=== PATIENT | female | born 1990 | race Caucasian/White ===

== ENCOUNTER 2021-02-28 16:43 | Emergency (ER) | payer OTHER, SELFPAY ==
[2021-02-28 16:50] VITALS: BP 122/72; PULSE 101; RESP 12; TEMP 36.9; O2SAT 100
--- NOTE | 2021-02-28 17:01 | ED.URI ---
HPI - URI/Sore Throat General Chief Complaint: Upper Respiratory Infection Stated Complaint: COUGH/SOB Time Seen by Provider: 02/28/21 17:02 Source: patient, RN notes reviewed and old records reviewed Mode of arrival: ambulatory Limitations: no limitations History of Present Illness HPI Narrative: 30-year-old female who presents to [facility] with complaints of one week duration of cough which wakes her at night with some sinus drainage. Patient denies any known fevers, chills,or sweats,denies any ear pain, sore throat or any acute shortness of breath. Patient has had COVID vaccination. Patient is able to speak in full sentences with no tachypnea or accessory muscle use noted, respirations are even and nonlabored with SAO2 100% on room air. Patient has not taken any OTC medications for her symptoms. MD elicited complaint: cough Related Data Home Medications Medication Instructions Recorded Confirmed calcium carbonate-vitamin D3 1 tablet PO DAILY 05/21/19 02/28/21 [Calcium with Vitamin D] cyanocobalamin (vitamin B-12) 1,000 mcg PO DAILY 05/21/19 02/28/21 [Vitamin B-12] acetaminophen 500 mg capsule 1,000 mg PO TID PRN cap 06/26/19 02/28/21 escitalopram oxalate 5 mg PO DAILY 02/28/21 02/28/21 trazodone 50 mg PO DAILY 02/28/21 02/28/21 venlafaxine 150 mg PO DAILY 02/28/21 02/28/21 Allergies Allergy/AdvReac Type Severity Reaction Status Date / Time Sulfa (Sulfonamide Allergy Intermediate Hives / Verified 02/28/21 16:50 Antibiotics) Red Face Penicillins Allergy Unknown rash Verified 02/28/21 16:50 Review of Systems Review of Systems: CONSTITUTIONAL: Denies fever, chills, or sweats. EYES: Denies visual changes, redness, or discharge. ENT: Positive rhinorrhea, congestion,no sore throat, or otalgia. CARDIOVASCULAR: Denies chest pain, palpitations, or edema. RESPIRATORY: Positive cough or dyspnea. GASTROINTESTINAL: Denies abdominal pain, nausea, vomiting, or diarrhea. GENITOURINARY: Denies dysuria or hematuria. SKIN: Denies rash or itching. MUSCULOSKELETAL: Denies back pain, joint pain, or myalgia. NEUROLOGIC: Denies headache, numbness, or weakness. PSYCHIATRIC:Positive history of anxiety or depression. All systems reviewed & are unremarkable except as noted in HPI and below PMFSH Past Medical History Medical History (Updated 02/28/21 @ 17:22 by Jammie Orellana NP) Anemia Anxiety and depression Insomnia Surgical History Surgical History (Updated 02/28/21 @ 17:19 by Jammie Orellana NP) No history of previous surgery Family History Family History Father Family history of elevated blood lipids Mother Family history of malignant neoplasm of breast in first degree relative Other Depression Social History Social History (Updated 02/28/21 @ 17:19 by Jammie Orellana NP) Smoking end date: 07/18/09 Alcohol intake: current Alcohol use details: social Substance use type: does not use Living arrangements: with family Gender identity (if verbalized by the patient): Female Comments At time of signature, agree with nursing past medical, surgical, social and family history. There is no relevant family history pertinent to the presenting complaint Exam Narrative: GENERAL: Well-appearing, well-nourished, and in no acute distress. HEAD: Normocephalic, atraumatic. EYES: PERRLA and EOMI. ENT: Nares red with swollen turbinates, clear nasal rhinorrhea no epistaxis. Mucous membranes moist.TM's normal with good light reflex, throat mild redness with no lesions or exudates, no tonsil enlargement, post nasal drainage present NECK: Supple.no lymphadenopathy CHEST: Clear to auscultation. No respiratory distress.SAO2 100% on room air, some cough noted with no dyspnea, no tachypnea or any accessory muscle use noted. HEART: Regular rate and rhythm. No murmur heard. Normal peripheral pulses. ABDOMEN: Soft, nontender, nondistended, normal active warren
== END 2021-02-28 17:34 | disposition home or self-care (01) ==
PROVIDERS: Emergency Provider Registered Nurse; PCP Family Medicine
DX: J06.9 Acute upper respiratory infection, unspecified (principal); F41.9 Anxiety disorder, unspecified; F32.9 Major depressive disorder, single episode, unspecified; G47.00 Insomnia, unspecified
CPT/HCPCS: 99213; G0463

== ENCOUNTER 2021-10-30 16:04 | Emergency (ER) | payer OTHER, SELFPAY ==
--- NOTE | ~2021-10-30 | US_ITS ---
US pelvic complete w TV DATE: 10/30/2021 17:28 INDICATION: Abnormal uterine bleeding TECHNIQUE: Real-time imaging via transabdominal and transvaginal approaches COMPARISON: None FINDINGS: The uterus measures 7.5 cm height, 4.9 cm transverse and 4.1 cm AP dimension. The central e ndometrial echo complex measures 3.9 mm AP dimension. There is an IUD in expected position within the endometrial cavity. Right ovary measures 3.9 x 4.3 x 4.5 cm, with vascular flow. There is a 3.5 x 2.8 cm complex lesion o f the right ovary., Without internal vascularity. This may be complicated or hemorrhagic cyst. The left ovary measures 3.4 x 2.5 x 2.1 cm, with vascular flow. There is mild free fluid accumulation posterior to the uterus. IMPRESSION: IUD within uterus 3.5 x 2.8 cm complex mass of right ovary without internal vascularity, possibly a complicated or hemo rrhagic cyst; consider short-term follow-up pelvic ultrasound examination Mild free fluid accumulation in the cul-de-sac and retrouterine area Reviewed, dictated and finalized at [facility]. Reviewed, dictated and finalized at [facility] IMPRESSION: IUD within uterus 3.5 x 2.8 cm complex mass of right ovary without internal vascularity, possibly a complicated or hemorrhagic cyst; consider short-term follow-up pelvic ultras ound examination Mild free fluid accumulation in the cul-de-sac and retrouterine area
[2021-10-30 16:18] VITALS: BP 118/74; PULSE 74; RESP 16; TEMP 36.3; O2SAT 97
[2021-10-30 16:54] LABS: Basophils Percent Auto 0.6 % (0.2-1.2); Eosinophils Absolute Auto 0.2 K/mm3 (0-0.3); Eosinophils Percent Auto 2.4 % (0-4.4); Hemoglobin 12.1 g/dL (12.0-15.0); Immature Granulocyte Absolute 0.01 K/mm3 (0.00-0.031); Immature Granulocyte Percent A 0.1 % (0-0.5); Lymphocytes Absolute Auto 1.77 K/mm3 (0.9-3.2); Lymphocytes Percent Auto 25.2 % (18.3-44.2); Mean Corpuscular HGB Conc 31.8 g/dl (32-36); Mean Corpuscular Hemoglobin 29.2 pg (26-34); Mean Corpuscular Volume 91.8 fl (80-100); Mean Platelet Volume 10.1 fl (7.4-10.4); Monocytes Absolute Auto 0.3 K/mm3 (0.1-0.6); Monocytes Percent Auto 4.8 % (2.6-8.5); Neutrophils Absolute Auto 4.7 K/mm3 (1.3-6.7); Neutrophils Percent Auto 66.9 % (45.5-73.1); Platelet Count Result 239 k/mm3 (150-375); Red Blood Count 4.14 M/mm3 (4.2-5.4); Red Cell Distribution Width 15.6 % (11.5-14.5)
[2021-10-30 16:55] LABS: Add Urine Microscopic? YES; Appearance Urine Clear (Clear); Bilirubin Urine Negative (Negative); Blood Urine 2+ (Negative); Color Urine Yellow (Yellow); Glucose Urine UA Negative (Negative); Ketones Urine Negative (Negative); Leukocyte Esterase Ur Negative LEU/UL (Negative); Nitrate Urine Negative (Negative); Protein Urine Negative (Negative); Urobilinogen Urine 0.2 mg/dL (<2.0); pH Urine 7.5 (5.0-9.0)
[2021-10-30 16:58] LABS: Bacteria Urine Trace /hpf; Squamous Epithelial Cell Urine Occasional /hpf (Few); WBC Urine 0-3 /hpf
[2021-10-30 17:04] LABS: INR 1.2; Partial Thromboplastin Time 35.7 SECONDS (22.3-36.8); Prothrombin Time 14.4 Seconds (11.1-14.7)
--- NOTE | 2021-10-30 17:25 | ED.FEMALEGU ---
HPI - Female Genitourinary General Chief complaint: [employer] Stated complaint: vaginal bleeding Time Seen by Provider: 10/30/21 16:14 Source: patient Mode of arrival: ambulatory Limitations: no limitations History of Present Illness HPI Narrative: This is a 30 year old female that presents to the ER for abnormal uterine bleeding. Reports she just had her menstrual cycle two weeks ago. She started again having some bleeding today. She has also had some pelvic cramping. She has an IUD. She usually has regular monthly periods. Does not have a aluminum sheet cutter currently. Denies fever, dysuria, or hematuria. Related Data Home Medications Medication Instructions Recorded Confirmed calcium carbonate-vitamin D3 1 tablet PO DAILY 05/21/19 02/28/21 [Calcium with Vitamin D] cyanocobalamin (vitamin B-12) 1,000 mcg PO DAILY 05/21/19 02/28/21 [Vitamin B-12] acetaminophen 500 mg capsule 1,000 mg PO TID PRN cap 06/26/19 02/28/21 escitalopram oxalate 5 mg PO DAILY 02/28/21 02/28/21 trazodone 50 mg PO DAILY 02/28/21 02/28/21 venlafaxine 150 mg PO DAILY 02/28/21 02/28/21 Allergies Allergy/AdvReac Type Severity Reaction Status Date / Time Sulfa (Sulfonamide Allergy Intermediate Hives / Verified 02/28/21 16:50 Antibiotics) Red Face Penicillins Allergy Unknown rash Verified 02/28/21 16:50 Review of Systems Review of Systems: CONSTITUTIONAL: Denies fever GASTROINTESTINAL: Reports pelvic cramping GENITOURINARY: Denies dysuria or hematuria. All systems reviewed & are unremarkable except as noted in HPI and below PMFSH Past Medical History Medical History (Updated 10/30/21 @ 18:17 by Roseanne Smith PA-C) Anemia Anxiety and depression Insomnia Surgical History Surgical History (Updated 02/28/21 @ 17:19 by Jammie Orellana NP) No history of previous surgery Family History Family History Father Family history of elevated blood lipids Mother Family history of malignant neoplasm of breast in first degree relative Other Depression Social History Social History (Updated 02/28/21 @ 17:19 by Jammie L. Reyna, HEEL [employer]ER) Smoking end date: 07/18/09 Alcohol intake: current Alcohol use details: social Substance use type: does not use Gender identity (if verbalized by the patient): Female Exam Narrative: GENERAL: Well-appearing, well-nourished, and in no acute distress. HEAD: Normocephalic, atraumatic. EYES: EOMI. CHEST: Clear to auscultation. No respiratory distress. No wheezes rales or rhonchi HEART: Regular rate and rhythm. No murmur heard. Normal peripheral pulses. ABDOMEN: Soft, nontender, nondistended, normal active bowel sounds. EXTREMITIES: Normal range of motion. No edema. SKIN: Warm, dry, no rash. NEURO: No focal deficits. Alert and oriented x3. PSYCH: Normal mood and affect PELVIC: Normal external genitalia. Normal appearing cervix. Small amount of dark red blood in the vaginal vault. IUD strings are visualized Course Vital Signs Vital signs: Vital Signs Temperature 97.3 F L 10/30/21 16:18 Pulse Rate 74 10/30/21 16:18 Respiratory Rate 16 10/30/21 16:18 Blood Pressure 118/74 10/30/21 16:18 Pulse Oximetry 97 10/30/21 16:18 Temperature 97.3 F L 10/30/21 16:18 Pulse Rate 74 10/30/21 16:18 Respiratory Rate 16 10/30/21 16:18 Blood Pressure 118/74 10/30/21 16:18 Pulse Oximetry 97 10/30/21 16:18 MDM - Female Genitourinary MDM Narrative Medical decision making narrative: Patient presents to the emergency department for abnormal uterine bleeding. She is afebrile and nontoxic-appearing. Her vitals are stable. CBC and metabolic panel without concerning findings. Bedside test is negative. UA without evidence of infection. Trichomonas is negative. Chlamydia, gonorrhea, general genital culture were sent. Pelvic ultrasound shows IUD within the uterus. Shows a 3.5 x 2.8 cm complex mass of the right ovary
[2021-10-30 17:39] LABS: Alanine Aminotransferase 11 U/L (4-35); Albumin Level 5.1 g/dL (3.5-5.1); Alkaline Phosphatase 71 U/L (38-126); Anion Gap 10 mmol/L (8-16); Aspartate Amino Transferase 27 U/L (14-36); Bilirubin,Total 0.4 mg/dL (0.2-1.3); Blood Urea Nitrogen 9 mg/dL (7-17); Calcium 9.8 mg/dL (8.4-10.2); Carbon Dioxide 26 mmol/L (22-30); Chloride 102 mmol/L (98-107); Estimated Glomerular Filt Rate > 60; Glucose 94 mg/dL (65-110); Potassium 3.8 mmol/L (3.4-5.0); Sodium 138 mmol/L (137-145)
[2021-10-30 18:22] VITALS: BP 114/70; PULSE 78; RESP 16; O2SAT 98
== END 2021-10-30 18:23 | disposition home or self-care (01) ==
PROVIDERS: Physician Assistant; Emergency Provider Emergency Medicine
DX: N93.9 Abnormal uterine and vaginal bleeding, unspecified (principal); N83.201 Unspecified ovarian cyst, right side; F41.9 Anxiety disorder, unspecified; F32.A Depression, unspecified; Z86.2 Personal history of diseases of the blood and blood-forming organs and certain disorders involving the immune mechanism; Z87.891 Personal history of nicotine dependence
CPT/HCPCS: 36415; 76830; 76856; 80053; 81001; 81025; 85025; 85610; 85730; 87070; 87491; 87591; 87808; 99284

== ENCOUNTER 2024-12-22 13:12 | Emergency (ER) | payer BC, SELFPAY ==
--- OUTSIDE RECORDS SUMMARY | 2024-12-22 13:14 | XMS_ITS | Referral Summary ---
Author Organization [facility] Address [address] [place] [phone] Care Team Providers Care Water Regulator And Valve Repairer Name Role Phone Maggy Wright NP Primary Care Provider [phone] Encounters Date Type Department Care Team Description 12/22/[address] [facility] Family Medicine [address] [facility] [address] [place] [phone] Maggy Wright NP 12/03/2024 1:15 PM CDT Office Visit [facility] [address] [phone] Zina Lock MD Encounter for supervision of other normal in third trimester (Primary Dx); 34 weeks gestation of 11/21/2024 1:15 PM CDT Office Visit [facility] [address] [place] [phone] Zina Lock MD care, subsequent in third trimester (Primary Dx); 32 weeks gestation of 11/05/2024 1:00 PM CDT [facility] Visit [facility] [address] [place] [phone] Sapna Forbes NP care, subsequent in third trimester (Primary Dx); 29 weeks gestation of 10/22/2024 1:55 PM CDT - 10/22/2024 11:59 PM CDT Hospital Encounter [facility] [address] [place] [address] Discharge Disposition: Discharge to home or self care 10/22/2024 1:30 PM CDT Office Visit [facility] [address] [place] [phone] Zina Lock MD Encounter for supervision of other normal in third trimester (Primary Dx); 28 weeks gestation of ; Screening for diabetes mellitus 09/24/2024 1:00 PM CDT [facility] [address] [place] [phone] Zina Lock MD Encounter for supervision of other normal , second trimester (Primary Dx); 24 weeks gestation of from Last 3 Months Allergies Active Allergy Reactions Criticality Noted Date Comments Penicillins Hives,Other (See comments) Medium Reaction: HIVES, Reaction: Unknown, , Sulfa (Sulfonamide Antibiotics) Hives,Other (See comments) Medium Reaction: HIVES, Reaction: Unknown, , Medications escitalopram (LEXAPRO) 20 mg tablet Take 1 tablet (20 mg total) by mouth daily for 30 days 08/03/2023 Active vit [id number] a 27mg iron- 800 mcg-250 mg capsule Take by mouth Active Active Problems Problem Noted Date Diagnosed Date Encounter for ultrasound to check growth 0 12/13/2024 Mixed hyperlipidemia 01/12/2024 Overview (01/12/2024): History of elevated cholesterol. Have lab work completed Obesity (BMI 30-39.9) 12/08/2023 Assessment & Plan (01/11/2024 1:06 PM CDT): Discussed the patient's BMI. The BMI is above average. BMI management plan is completed. BMI Follow-up includes: nutrition counseling, exercise counseling and education provided. Assessment & Plan (12/08/2023 1:21 PM CDT): Discussed the patients BMI: The BMI is above average BMI management is complete. BMI follow-up includes: Nutrition Counseling and education provided Other insomnia 08/11/2021 Assessment & Plan (03/07/2024 11:01 AM CDT): 1. Chronic, poorly controlled 2. Trazodone is helping with her fall and stay asleep as well as have good energy during the day 3. She however she has a hard time waking up 4. She will get a timed mister to spray cold water in her face and will continue trazodone though she will try taking 75 mg Assessment & Plan (01/03/2024 4:20 PM CDT): 1. Chronic, improving but still poorly controlled with respected next day somnolence 2. Will continue the trazodone and recommended that she an hour to an hour and a half before desired wake-up time to take the phentermine and go back to bed Assessment & Plan (12/07/2023 4:42 PM CDT): 1. Chronic, poorly controlled 2. This is having a severe negative impact on her life 3. Recommended we do combination therapy of trazodone and Wellbutrin. Discussed possible worsening anxiety with wellbutrin and she understands to report any side effects. Assessment & Plan (11/04/2023 8:03 AM CDT): 1. Chronic, poorly controlled 2. This is having a severe negative impact on her life 3. Reviewed her previous sleep study which showed no sleep apnea, but constant spontaneous arousals 4. Recommended we do combination therapy of trazodone and Wellbutrin 5. However patient states that she is trying to get 6. Will prescribed doxylamine instead Assessment & Plan (08/11/2021 3:47 PM HEALTH AND SAFETY INSTRUCTOR): -will refer to Sleep Medicine for further eval pending normal labs. -patient to sleep medicine that she years ago but did not complete workup. -chronic problem, patient has difficulty getting Ki quality sleep. Chronic fatigue most the day. Consumes a vegan diet 08/11/2021 Assessment & Plan (08/11/2021 3:47 PM HEALTH AND SAFETY INSTRUCTOR): -will check B12 and folate Family history of breast cancer in mother 2021 Assessment & Plan (08/11/2021 3:47 PM HEALTH AND SAFETY INSTRUCTOR): -family history of breast cancer mother at age mid 40s -referral to high risk breast Cancer Clinic Anxiety 02/03/2012 Assessment & Plan (08/11/2021 3:49 PM HEALTH AND SAFETY INSTRUCTOR): -anxiety/depression/ADHD -follows up with Psychiatry. Acquired deviated nasal septum 02/03/2012 Chronic rhinitis 01/17/2012 Estimated Date of Delivery Comme nts Yes 01/14/2025 Based on last me nstrual period of 04/09/2024 Resolved Problems Problem Noted Date Diagnosed Date Resolved Date Encounter for anatomic survey 08/23/2024 10/22/2024 Encounter for scre ening for cervical length 08/23/2024 10/22/2024 Body aches 07/17/2024 10/22/2024 Overview (07/17/2024): COVID and flu were negative. Tylenol as needed for pain Sore throat 07/17/2024 10/22/2024 Overview (07/17/2024): Strep is negative. Take Tylenol as needed for pain. Confirm cardiac activi ty using ultrasound 06/05/2024 10/22/2024 Weight gain 12/09/2023 06/06/2024 Overview (12/09/2023): Start phentermine 15 mg half tablet in the morning and half tablet in the afternoon. Follow-up 1 month for further evaluation Assessment & Plan (12/09/2023 9:11 AM CDT): This is a significant, separately identifiable problem that was evaluated and managed on the same day as the wellness exam Physical exam, annual 08/11/20212023 Assessment & Plan (08/11/2021 3:48 PM HEALTH AND SAFETY INSTRUCTOR): -labs today -up-to-date with COVID vaccine however advised booster -up-to-date with Tdap shot. Advised flu however patient declines -advised regular exercise three to 5 times a week for at least 30 minutes -q.6 months dental checks -advised annual eye exam -referral to high risk breast Cancer Clinic family history of breast cancer mother at age 45 Palpitation 08/11/2021 06/06/2024 Assessment & Plan (08/11/2021 3:47 PM HEALTH AND SAFETY INSTRUCTOR): -requesting referral to cardiology. Palpitations, occurs a few times year. Happens when she is not having panic attack. Anemia 02/17/2014 06/06/2024 Overview (10/22/2016): Anemia Immunizations Immunization Administration Dates Next Due Hep B, Adolescent or Pediatric 09/10/2020 Influenza, Unspecified 08/09/2023(Deferr ed: Patient Refused),07/18/2023(Deferred: Patient Refused) Tdap 11/21/2024,11/16/2015 Social History Tobacco Use Types Packs/Day Years Used Date Smoking Tobacco: Never Smokeless Tobacco: Never Tobacco Cessation:Counseling Given: Not Answered Alcohol Use Standard Drinks/Week Comments Yes 0 (1 standard drink = 0.6 oz pur e alcohol) AUDIT-C Answer Date Recorded Q1: How often do you have a drink containing alc ohol? 2-4 times a month 09/14/2023 Average Number of Drinks Not on file 024 Frequency of Binge Drinking Not on file 08/19 PHQ-2 Answer Date Recorded PHQ-2 Total Score (If total score is 3 or more points, staff should administer the PHQ-9) 0 07/13/2024 PHQ-9 Answer Date Recorded PHQ-9 Total Score 17 12/07/2023 Estimated Date of Delivery Comme nts Yes 01/14/2025 Based on last me nstrual period of 04/09/2024 Sex and Gender Information Value Date Recorded Sex Assigned at Not on file Legal Sex Female 2:00 AM HEALTH AND SAFETY INSTRUCTOR Gender Identity Female 08/11/2021 9:42 AM HEALTH AND SAFETY INSTRUCTOR Sexual Orientation Straight 08/11/2021 9: 42 AM HEALTH AND SAFETY INSTRUCTOR Last Filed Vital Signs Vital Sign Reading Time Taken Comments Blood Pressure 124/72 12/03/2024 1:24 PM CDT Pulse 101 08/23/2024 1:23 PM HEALTH AND SAFETY INSTRUCTOR Temperature 36.4 C (97.6 F) 08/23/2024 1:23 PM HEALTH AND SAFETY INSTRUCTOR Respiratory Rate 18 08/23/2024 1:23 PM HEALTH AND SAFETY INSTRUCTOR Oxygen Saturation 98% 08/23/2024 1:23 PM HEALTH AND SAFETY INSTRUCTOR Inhaled Oxygen Concentration - - Weight 101.6 kg (224 lb) 12/03/2024 1:24 PM CDT Height 165.1 cm (5' 5) 11/21/2024 1:20 PM CDT Body Mass Index 37.28 11/21/2024 1:20 PM CDT Plan of Treatment Not on file Procedures Procedure Name Priority Date/Time Associated Diagnosis Comments POCT OB URINE SHORT DIP (GLUCOSE, PROTEIN, KETONES) Routine 12/03/2024 1:34 PM CDT Encounter for supervision of other normal in third trimester 34 weeks gestation of POCT OB URINE SHORT DIP (GLUCOSE, PROTEIN, KETONES) Routine 11/21/2024 1:27 PM CDT 32 weeks gestation of care, subsequent in third trimester POCT OB URINE SHORT DIP (GLUCOSE, PROTEIN, KETONES) Routine 11/05/2024 1:31 PM CDT 29 weeks gestation of care, subsequent in third trimester POCT OB URINE SHORT DIP (GLUCOSE, PROTEIN, KETONES) Routine 10/22/2024 1:32 PM CDT Encounter for supervision of other normal in third trimester 28 weeks gestation of DIFFERENTIAL AUTO Routine 10/22/2024 1:1 3 PM CDT Encounter for supervision of other normal in third trimester 28 weeks gestation of CBC WITH AUTO DIFFERENTIAL Routine 10/22/2024 1:13 PM CDT Encounter for supervision of other normal in third trimester 28 weeks gestation of GTT 50GM 1HR GESTATIONAL SCREEN Routine 10/22/2024 1:13 PM CDT Encounter for supervision of other normal in third trimester 28 weeks gestation of Screening for diabetes mellitus RPR Routine 10/22/2024 1:13 PM CDT Encounter for supervision of other normal in third trimester 28 weeks gestation of POCT OB URINE SHORT DIP (GLUCOSE, PROTEIN, KETONES) Routine 09/24/2024 1:28 PM CDT Encounter for supervision of other normal , second trimester 24 weeks gestation of HEPATITIS C ANTIBODY Routine 06/06/2024 3:49 PM HEALTH AND SAFETY INSTRUCTOR 8 weeks gestation of Encounter for supervision of normal first in first trimester HIGH RISK HPV DNA DETECTION WITH GENOTYPING Routine 09/13/2023 11:37 AM HEALTH AND SAFETY INSTRUCTOR Encounter for well woman exam with routine gynecological exam from Last 3 Months or Most Recently Relevant to Health Maintenance Results * POCT OB urine short dip (glucose, protein, ketones) (12/03/2024 1:34 PM CDT) Glucose, ur, POC Negative Negative Protein, ur, POC Negative Negative Ketones, ur, POC Negative Negative Lot Number [id number] Urine 12/03/2024 1:34 PM CDT us Zina Lock MD POINT OF CARE TEST ORDERABLES Final Result * POCT OB urine short dip (glucose, protein, ketones) (11/21/2024 1:27 PM CDT) Glucose, ur, POC Negative Negative Protein, ur, POC Negative Negative Ketones, ur, POC Negative Negative Lot Number [id number] Urine 11/21/2024 1:27 PM CDT us Zina Lock MD POINT OF CARE TEST ORDERABLES Final Result * POCT OB urine short dip (glucose, protein, ketones) (11/05/2024 1:31 PM CDT) Glucose, ur, POC Negative Negative MG/DL Protein, ur, POC Negative Negative Ketones, ur, POC Negative Negative Lot Number [id number] Urine 11/05/2024 1:31 PM CDT Result [facility] Sapna Forbes NP POINT OF CARE TEST ORDERABL ES Final Result * (ABNORMAL) POCT OB urine short dip (glucose, protein, ketones) (10/22/2024 1:32 PM CDT) Glucose, ur, POC Negative Negative MG/DL Protein, ur, POC 1+(A) Negative Ketones, ur, POC Negative Negative Lot Number [id number] Urine 10/22/2024 1:32 PM CDT Result [facility] Zina Lock MD POINT OF CARE TEST ORDERABLES Final Result * (ABNORMAL) Differential, auto (10/22/2024 1:13 PM CDT) Pathologist [facility] Neutrophil abs 7.87(H) 1.50 - 6.50 K/cumm Imm gran abs 0.13(H) 0.00 - 0.10 K/cumm [facility] Lymphocyte abs 1.49 0.80 - 3.30 K/cumm [facility] Monocyte abs 0.38 0.20 - 0.80 K/cumm [facility] Eosinophil abs 0.10 0.00 - 0.50 K/cumm [facility] Basophil abs 0.05 0.00 - 0.10 K/cumm [facility] Neutrophil pct 78.5 % [facility] Comment: Interpretive Data Percent cell count reference ranges are not reported, since discordance with absolute values may lead to misinterpretation of CBC data. Current Interpretive Data was last revised on 2017. Imm gran pct 1.3 % [facility] Comment: Interpretive Data Percent cell count reference ranges are not reported, since discordance with absolute values may lead to misinterpretation of CBC data. Current Interpretive Data was last revised on 2017. Lymphocyte pct 14.9 % [facility] Comment: Interpretive Data Percent cell count reference ranges are not reported, since discordance with absolute values may lead to misinterpretation of CBC data. Current Interpretive Data was last revised on 2017. Monocyte pct 3.8 % [facility] Comment: Interpretive Data Percent cell count reference ranges are not reported, since discordance with absolute values may lead to misinterpretation of CBC data. Current Interpretive Data was last revised on 2017. Eosinophil pct 1.0 % [facility] Comment: Interpretive Data Percent cell count reference ranges are not reported, since discordance with absolute values may lead to misinterpretation of CBC data. Current Interpretive Data was last revised on 2017. Basophil pct 0.5 % [facility] Comment: Interpretive Data Percent cell count reference ranges are not reported, since discordance with absolute values may lead to misinterpretation of CBC data. Current Interpretive Data was last revised on 2017. Blood 10/22/2024 1:13 PM CDT 10/22/2024 8:09 PM CDT Zina Lock MD LAB BLOOD ORDERABLES Final Res ult [facility] [address] Department [place] [address] * GTT 50gm 1hr gestational screen (10/22/2024 1:13 PM CDT) GTT 50g gest screen 137 <=140 mg/dL Comment: Interpretive Data Used for suspected gestational diabetes. The screening test uses 50 grams of glucose with sample obtained 1 hr later. Normal range: < 140 mg/dL. A glucose value of >140 mg/dL generally indicates the need for a full diagnostic tolerance test. Reference Interval Info: Diabetes Care 2005, Vol 28. Supplement 1,S37-S42. Report of the Expert Committee on the Diagnosis and Classification of Diabetes Mellitus. Diabetes Care 2020; 43(Supplement 1):S14-31. Current interpretive data was last revised on 2020. Blood 10/22/2024 1:13 PM CDT 10/22/2024 8:09 PM CDT us Zina Lock MD LAB BLOOD ORDERABLES Final Res ult Performing Organization Address [facility] Co de Phone Number [facility] [address] [place] [address] * (ABNORMAL) CBC with auto differential (10/22/2024 1:13 PM CDT) [facility] WBC 10.02(H) 3.80 - 9.90 K/cumm Hgb 12.0 11.9 - 15.5 g/dL [facility] Hct 37.3 35.6 - 45.5 % [facility] Plt 227 150 - 400 K/cumm [facility] MPV 9.5 9.1 - 12.3 fL [facility] RBC 3.81(L) 3.90 - 5.20 M/cumm [facility] MCV 97.9(H) 81.3 - 96.4 fL [facility] MCH 31.5 27.1 - 33.3 pg [facility] MCHC 32.2(L) 32.3 - 35.7 g/dL [facility] RDW CV 13.9 11.1 - 14.9 % [facility] RDW SD 50.1(H) 35.7 - 48.1 fL [facility] NRBC abs 0.00 0.00 - 0.01 K/cumm [facility] Blood 10/22/2024 1:13 PM CDT 10/22/2024 8:09 PM CDT Zina Lock MD LAB BLOOD ORDERABLES Final Res ult Performing Organization Address [facility]/ZIP Co de Phone Number [facility] [address] [place] [address] * RPR Blood (10/22/2024 1:13 PM CDT) [facility] RPR Nonreactive Nonreactive Comment:Testing performed by : [facility], [address], [place]., [address] Blood 10/22/2024 1:13 PM CDT 10/23/2024 12:50 AM CDT Result [facility] Zina Lock MD LAB MICROBIOLOGY - GENERAL ORD ERABLES Final Result Performing Organization Address [facility] Co de Phone Number [facility] [address] [place] [address] * POCT OB urine short dip (glucose, protein, ketones) (09/24/2024 1:28 PM CDT) [facility] Glucose, ur, POC Negative Negative MG/DL Protein, ur, POC Negative Negative Ketones, ur, POC Negative Negative Lot Number [id number] Urine 09/24/2024 1:28 PM CDT Result [facility] Zina Lock MD POINT OF CARE TEST ORDERABLES Final Result * Hepatitis C antibody Blood (06/06/2024 3:49 PM HEALTH AND SAFETY INSTRUCTOR) [facility] Hep C Ab Nonreactive Nonreactive Comment: Interpretive Data Nonreactive: Antibodies to HCV not detected. Does NOT exclude the possibility of recent exposure to HCV. Equivocal: Equivocal for HCV antibodies. Supplemental molecular testing will be automatically performed to determine infection status in accordance with current CDC screening recommendations. Reactive: Positive for HCV antibodies. This may represent current or past HCV infection. Supplemental molecular testing will be automatically performed to determine current infection status in accordance with current CDC screening recommendations. Interpretive data was last revised on 2019. Blood 06/06/2024 3:49 PM HEALTH AND SAFETY INSTRUCTOR 06/06/2024 7:01 PM HEALTH AND SAFETY INSTRUCTOR Result [facility] Zina Lock MD LAB MICROBIOLOGY - GENERAL ORD ERABLES Final Result Performing Organization Address City/[facility]/ZIP Co de Phone Number [facility] [address] [place] [address] * High Risk HPV DNA Detection with Genotyping (Molecular component) (09/13/2023 11:37 AM HEALTH AND SAFETY INSTRUCTOR) [facility] HPV HR 16 Not Detected Not Detected [facility] HPV HR 18 Not Detected Not Detected [facility] HPV HR Non 16/18 Not Detected Not Detected [facility] Comment: Interpretive Data Nucleic acid amplification for detection of high-risk Human Papilloma virus (HPV) is performed by the Warren Ronna 4800 HPV test, which specifically detects high-risk HPV-16, 18, 31, 33, 35, 39, 45, 51, 52, 56, 58, 59, 66, and 68 genotypes. This assay has been approved by the [place] Food and Drug Administration for detection of HPV in cervical specimens collected by a physician using an endocervical brush/spatula or cervical broom and placed in the ThinPrep Pap Test PreservCyt collection containers. The performance characteristics of this test have been verified by the [facility]. Correlate with separately reported cytology results, as applicable. Interpretive data last revised 23 Endocervical 09/13/2023 11:3 7 AM HEALTH AND SAFETY INSTRUCTOR 09/13/2023 9:26 PM HEALTH AND SAFETY INSTRUCTOR Narrative [facility] - 09/16/2023 8:38 PM HEALTH AND SAFETY INSTRUCTOR Clinical history and diagnosis->well woman exam Testing type->Screening Last menstrual period (date if known)->08/16/2023 Sapna Forbes NP LAB BODY FLUIDS AND STOOLS ORDERABLES Final Result [facility] [address] Department [place] [address] from Last 3 Months or Most Recently Relevant to Health Maintenance Insurance [place] Care Teams Water Regulator And Valve Repairer Relationship Specialty Start Date End Date Maggy Wright NP [address] [facility] [address] [place], [place] [phone] PCP - General Internal Medicine 12/08/23
--- OUTSIDE RECORDS SUMMARY | 2024-12-22 13:14 | XMS_ITS | Continuity of Care Document ---
Author Organization [facility] Address [address] [place] [address] Phone Care Team Providers Care Surveyor'S Assistant Name Role Phone Carlos Nichols MD Unavailable Unavailable Advance Directives Directive Yes / No Effective Date File Name No Information Encounters Encounter Description Practice Location Reason(s) For Visit Diagnoses Date Provider Providers Copied on Encounter [facility], [address] [place], [place], [id number], [place] tel:[phone] SEC [facility] No Information 7 5 Magdalena Gonzalez. [address] [place], [place], [id number], [place]. tel:[phone] Family History Family Member Type Diagnosis Age At Onset No Information Payers Payer name Insurance type Covered republican ID Authorannettea ambreen(s) [facility] Commercial CI [id number] Social History Type Description Quantity Date Captured Comments Sex Female Smoking Status No Information Chief Complaint And Reason For Visit No Information Reason For Referral Reason For Referral No Information History Of Present Illness Encounter Date Complaint History Of Prese nt Illness No Information Functional Status Date Functional Assessmen t No Information Instructions Date Instruction Additional Infor mation No Information Assessments Type Assessment Date No Information Patient Care Teams Name Effective Dates (start - stop) Status Members No Information
--- OUTSIDE RECORDS SUMMARY | 2024-12-22 13:14 | XMS_ITS | Clinical Summary ---
Author Organization [facility] Care Team Providers Care Claims Administrator Name Role Phone Unavailable Primary Care Provider Unavailabl e Social History Tobacco Use Types Packs/Day Years Used Date Smoking Tobacco: Never Assessed Comments Unknown Sex and Gender Information Value Date Recorded Sex Assigned at Not on file Legal Sex Female 2:38 PM PROSECUTING ATTORNEY Gender Identity Not on file Sexual Orientation Not on file Plan of Treatment Health Maintenance Due Date Last Done Comments Hepatitis C Virus (HCV) Screening 1991 TdaP Immunization 1991 Hepatitis B Immunization (1 of 3 - 19+ 3-dose series) 11/10/2010 Pap Smear 11/10/2012 Cervical Cancer Screening (CCS) 11/10/2021 HPV/Cotest 11/10/2021 Influenza Immunization (#1) 2024 SARS-COV-2 Immunization ( season) 2024 Respiratory Syncytial Virus (RSV) Immunization (Adult) (1 - 1-dose 75+ series) 11/10/2066 Meningococcal Immunization (ACWY) Aged Out No longer eligible based on patient's age to complete this topic Pneumococcal Immunization Combined Aged Out No longer eligible based on patient's age to complete this topic Rotavirus Immunization Aged Out No lo nger eligible based on patient's age to complete this topic
--- OUTSIDE RECORDS SUMMARY | 2024-12-22 13:14 | XMS_ITS | Clinical Summary ---
Author Organization [facility] Address [address] [place] [id number] Care Team Providers Care Embroidery Operator Name Role Phone Maggy Wright NP Primary Care Provider [phone] Allergies Active Allergy Reactions Criticality Noted Date Comments Penicillins Hives,Other (See comments) Medium Reaction: HIVES, Reaction: Unknown, , Sulfa (Sulfonamide Antibiotics) Hives,Other (See comments) Medium Reaction: HIVES, Reaction: Unknown, , Medications escitalopram (LEXAPRO) 20 mg tablet Take 1 tablet (20 mg total) by mouth daily for 30 days 08/03/2023 Active vit [id number]-dh a 27mg iron- 800 mcg-250 mg capsule [...] instead Assessment & Plan (08/11/2021 3:47 PM LANOLIN PLANT OPERATOR): -will refer to Sleep Medicine for further eval pending normal labs. -patient to sleep medicine that she years ago but did not complete workup. -chronic problem, patient has difficulty getting Ki quality sleep. Chronic fatigue most the day. Consumes a vegan diet 08/11/2021 Assessment & Plan (08/11/2021 3:47 PM LANOLIN PLANT OPERATOR): -will check B12 and folate Family history of breast cancer in mother 2021 Assessment & Plan (08/11/2021 3:47 PM LANOLIN PLANT OPERATOR): -family history of breast cancer mother at age mid 40s -referral to high risk breast Cancer Clinic Anxiety 02/03/2012 Assessment & Plan (08/11/2021 3:49 PM LANOLIN PLANT OPERATOR): -anxiety/depression/ADHD -follows up with Psychiatry. Acquired deviated [...] 08/11/20212023 Assessment & Plan (08/11/2021 3:48 PM LANOLIN PLANT OPERATOR): -labs today -up-to-date with COVID vaccine however [...] 06/06/2024 Assessment & Plan (08/11/2021 3:47 PM LANOLIN PLANT OPERATOR): -requesting referral to cardiology. Palpitations, occurs a few times year. Happens when she is not having panic attack. Anemia 02/17/2014 06/06/2024 Overview (10/22/2016): Anemia Encounters Date Type Department Care Team Description 12/22/2024 Nurse Triage [facility] [address] [phone] Maggy Wright NP 12/03/2024 1:15 PM CDT Office Visit [facility] at [address] [place] [phone] Zina Lokc MD Encounter for supervision of other normal in third trimester (Primary Dx); 34 weeks gestation of 11/21/2024 1:15 PM CDT Office Visit [facility] at [address] [phone] Zina Lock MD care, subsequent in third trimester (Primary Dx); 32 weeks gestation of 11/05/2024 1:00 PM CDT Office Visit [facility] at [address] [place] [phone] Sapna Forbes NP care, subsequent in third trimester (Primary Dx); 29 weeks gestation of 10/22/2024 1:55 PM CDT - 10/22/2024 11:59 PM CDT Hospital Encounter [address] [place] [phone] Discharge Disposition: Discharge to home or self care 10/22/2024 1:30 PM CDT Office Visit [facility] at [address] [place] [phone] Zina Lock MD Encounter for supervision of other normal in third trimester (Primary Dx); 28 weeks gestation of ; Screening for diabetes mellitus 09/24/2024 1:00 PM CDT Office Visit [facility] at [address] [place] [phone] Zina Lock MD Encounter for supervision of other normal , second trimester (Primary Dx); 24 weeks gestation of from Last 3 Months Immunizations Immunization Administration Dates Next Due Hep B, Adolescent or Pediatric 09/10/2020 Influenza, Unspecified 08/09/2023(Deferr ed: Patient Refused),07/18/2023(Deferred: Patient Refused) Tdap 11/21/2024,11/16/2015 Medical History Medical History Date Comments ADD (attention deficit disorder) Anxiety Panic attacks Depression Anemia Urinary tract infection Vitamin D deficiency Family History Medical History Relation Name Comments No Known Problems Brother Hypertension Father Heart attack Maternal Grandfather Ming Deterding Arthritis Maternal Grandmother Linda Deterding Cancer Maternal Grandmother Linda Deterding Dementia Maternal Great-Grandmother Breast cancer Mother Sweta panchal Cancer, jae st; Cancer Mother Sweta connorsa Depression Mother Sweta connorsa Miscarriages / Stillbirths Mother Sweat connorsa Depression Mother's Sister Tona Mayer Alzheimer's disease Paternal Grandfather Harrison panchal Arthritis Paternal Grandmother Katherine Panchal Rheum arthritis Paternal Grandmother Katherine Panchal Ambiguous genitalia Sister 1/2 cloacal exstrophy Sister 1/2 Relation Name Status Comments Brother Father Alive Maternal Grandfather Ming Deterding Alive Maternal Grandmother Linda Deterding Maternal Great-Grandmother Alive Mother Sweta connorsa Alive Mother's Sister Tona Mayer Alive Paternal Grandfather Harrison panchal Alive Paternal Grandmother Katherine Panchal Alive Sister 1/2 Social History Tobacco Use Types Packs/Day Years [...] on file Legal Sex Female 2:00 AM LANOLIN PLANT OPERATOR Gender Identity Female 08/11/2021 9:42 AM LANOLIN PLANT OPERATOR Sexual Orientation Straight 08/11/2021 9: 42 AM LANOLIN PLANT OPERATOR Obstetrics History Para Term AB IAB SAB Ectopic Multiple Livin g Live Births 2 1 1 1 1 Date Outcome GA Total Labor Labor/2nd/3rd Weight Sex Type Anes PTL Valery A1 A5 Name Clin 01/04 16 Term Vaginal Living Current Summary Episode Dates Number of Fetuses Estimated Date of Delivery 06/06/2024 - Present (12/22/2024) 1 01/14/2025 (set by Darling Aleman MA on 06/06/2024 based on Last Menstrual Period on 04/09/2024) Dating Summary Based On BASHIR GA Diff Last Menstrual Period on 04/09/2024 01/14/2025 Working Ultrasound on 06/06/2024 01/14/2025 Same GA:8w2d Overview and Plan :Meredith Delivery Plans Planned delivery method:Vaginal Planned delivery location:Other - [facility] Location Overview Baby Name ANGELIKA Vitals Pregravid Weight Height TWG (As of 12/22/2024) Pregrav id BMI 92.1 kg (203 lb) 165.1 cm (5' 5) 9.526 kg (21 lb) 33. 78 Notes Progress Notes - Office Visi t - 12/03/2024 - GA:34w0d 12/03/2024 - 34w0d - Zina Lock MD Keiry is feeling daily movement. She denies any vaginal bleeding, leakage of fluid or regular contractions. She denies any headaches, visual changes, right upper quadrant/epigastric pain or increased swelling. She reports that she is planning on meeting with certified nurse shift commander at [facility] in [facility]. She desires home , but has not yet met CNMW who has offering this service to her in [place]. She reports that CNMW was a labor and delivery nurse in her aunt was labor and delivery nurse who is familiar with this practitioner. Once she has met this provider, she will ask questions regarding physician backup in at which hospital she has privileges that. She does not have any more details otherwise. A/P 33 y.o. @ 34w0d by LMP=8w ultrasound (baby girl Angelika Geronimo) 1. Supervision -O+/RI/-/-/NR, HepC-, varicella immune, GCT= 137, Tdap vaccine given 11/21 -s/p low risk NIPT - labor precautions reviewed -Preeclampsia precautions reviewed -Kick counts reviewed and she was encouraged to call for decreased movement - contraceptive options reviewed and she reports that she does not want contraception as she would be okay with conceiving again soon 2. Anxiety with depression -Stable on Lexapro 3. Insomnia -Discontinued trazodone with , taking Unisom/doxylamine nightly -Has appointment with sleep specialist in February 2025 We reviewed the safest place for patient to have a baby would be at a birthing center at the hospital or at labor and delivery at hospital. With both of these facilities there would be emergent care available if there were any complications for either her baby. We discussed that she could still have a natural , but also have emergent medical care available as sometimes there could be obstetrical complications that are not predicted. Would recommend avoiding home , but consider breathing at Birthing Center/hospital instead. She reports that she plans to continue weekly visits in our office until delivery and will let me know after she has met CNMW where she plans to deliver. Progress Notes - Office Visi t - 11/21/2024 - GA:32w2d 11/21/2024 - 32w2d - Zina Lock MD Keiry is feeling daily movement. She denies any vaginal bleeding, leakage of fluid or regular contractions. She denies any headaches, visual changes, right upper quadrant/epigastric pain or increased swelling. A/P 33 y.o. @ 32w2d by LMP=8w ultrasound (baby girl Angelika Geronimo) 1. Supervision -O+/RI/-/-/NR, HepC-, varicella immune, GCT= 137, Tdap vaccine given 11/21 -s/p low risk NIPT - labor precautions reviewed -Preeclampsia precautions reviewed -Kick counts reviewed and she was encouraged to call for decreased movement - contraceptive options reviewed and she reports that she does not want contraception as she would be okay with conceiving again soon 2. Anxiety with depression -Stable on Lexapro 3. Insomnia -Discontinued trazodone with , taking Unisom/doxylamine nightly -Has appointment with sleep specialist in February 2025 Progress Notes - Office Visi t - 11/19/2024 - GA:32w0d 11/19/2024 - 32w0d - Zina Lock MD No show Progress Notes - Office Visi t - 11/05/2024 - GA:30w0d 11/05/2024 - 30w0d - Sapna Forbes NP Patient reports she is feeling regular movement throughout the day. She denies vaginal bleeding, leaking of fluid, cramps or contractions. Feels generally u ncomfortable, and is now seeing the chiropractor to help with lower back pain particularly more on the left. She denies headaches, visual disturbances, epigastric or right upper quadrant pain. Patient denies changes to swelling of her extremities. She denies any bowel concerns. Patient reports that she has met with a shift commander and is planning to deliver at home but desires to continue care with our office. Desires to get a copy of her medical records. Weight is up 3 lb since last visit. Blood pressure normal. She reports recently she has not been as consistent with taking iron and vitamin-D. Patient offered purchasing engineer with visit and patient declined 33-year-old at 30 weeks 0 days by LMP which equals 8 week ultrasound-baby girl Angelika Geronimo Low risk NIPT O positive, rubella immune, varicella immune Hemoglobin 2nd trimester-11.0 1 hour GTT-137 RPR-2nd trimester-NR Borderline anemia Encouraged iron with prenatals and increasing iron rich foods through diet. Discussed option of slow FET slow release iron with a source of citrus fruit or vitamin-C. Continue prenatals with iron Consider rechecking at 35-36 weeks unless indicated sooner Sleep disturbance Patient has had trouble sleeping for some time. Has been counseled on safe options [id number] including Unisom, magnesium, Lavender oil, Benadryl. Patient denies anxiety or depression concerns at this time. Patient has an appointment with sleep specialists after delivery-February 2025 Lower back discomfort and uncomfortable Patient is seeing a chiropractor now which is helping. Encouraged regular stretching yoga heat icy hot and comfort measures, encouraged pelvic support belt Normal care UA specific gravity-1.015, trace blood intact, pH 7.0 and negative on all other counts-encouraged good hydration and good nutrition labor precautions reviewed Preeclampsia precautions reviewed Kick counts advised daily as needed Has a lanolin plant operator, getting a car seat, getting a new breast pump Desires Tdap at next visit Patient to sign records release Patient told to bring in plan discuss her desired wishes with regards to delivery with Dr. Lock at next encounter Follow-up in the clinic in 2 weeks for an appointment with Dr. Lock. Cosigned by Zina Lock MD at 11/05/2024 2:05 PM CDT Progress Notes - Office Visi t - 10/22/2024 - GA:28w0d 10/22/2024 - 28w0d - Zina Lock MD Keiry is feeling daily movement. She denies any vaginal bleeding, leakage of fluid or regular contractions. She denies any headaches, visual changes, right upper quadrant/epigastric pain or increased swelling. She continues to use Unisom at bedtime which helps her fall asleep, but she still wakes up early in the morning and then is unable to fall asleep. Does have appointment scheduled with sleep specialist after delivery in February 2025. A/P 33 y.o. @ 28w0d by LMP=8w ultrasound (baby girl Angelika Geronimo) 1. Supervision -O+/RI/-/-/NR, HepC-, varicella immune -s/p low risk NIPT - labor precautions reviewed -Preeclampsia precautions reviewed -Kick counts reviewed and she was encouraged to call for decreased movement - contraceptive options reviewed and she reports that she does not want contraception as she would be okay with conceiving again soon -GCT/CBC/RPR obtained today -Tdap to be offered at subsequent visits -Discussed taking half a tablet of Unisom at bedtime and another half tablet of Unisom when she wakes up early in the morning to see if this will help her get more consistent sleep Progress Notes - Office Visi t - 09/24/2024 - GA:24w0d 09/24/2024 - 24w0d - Zina Lock MD Keiry is feeling daily movement. She denies any vaginal bleeding, leakage of fluid or regular contractions. She continues to have difficulty sleeping. She was a diagnosis of insomnia prior to and was using trazodone prior to . Since she has been she has been using Unisom at bedtime, but reports that just keeps her sleep for half of the night. She does have appointment scheduled with her sleep specialist to see if there are any other options. A/P 33 y.o. @ 24w0d by LMP=8w ultrasound (baby girl) 1. Supervision -O+/RI/-/-/NR, HepC-, varicella immune -s/p low risk NIPT - labor precautions reviewed -Preeclampsia precautions reviewed -Given instructions/drink for GCT/CBC/RPR to be performed next visit Progress Notes - Clinical Tam pport - 08/27/2024 - GA:20w0d 08/27/2024 - wd - Lorena Mora RDMS See ultrasound report LIN PLANT OPERATOR Progress Notes - Office Visi t - 08/01/2024 - GA:16w2d 08/01/2024 - - Zina Lock MD Keiry reports that she is feeling well overall. She denies any vaginal bleeding or cramping. She reports that she continues to have fatigue even though she is out of the 1st trimester. She believes her fatigue is due to difficulty sleeping. She had insomnia prior to , but stopped trazodone before trying to conceive as she did not want to use medication during . She typically wakes up at 3:00 a.m. every morning. She reports that she is hungry majority of the time so she gets up and eats a little bit of something such as an apple. She then sleeps until 11:00 a.m.. She has started taking Benadryl at bedtime and that helps her fall asleep, but does not keep her sleep. A/P 33 y.o. @ 16w2d by LMP=8w ultrasound (baby girl) 1. Supervision -O+/RI/-/-/NR, HepC-, varicella immune -s/p low risk NIPT -Declined optional genetic carrier screening for autosomal recessive/X-linked disorders -Anatomical survey ultrasound scheduled with next visit on 08/27 2. Insomnia -She can continue Benadryl or try doxylamine at bedtime -Reviewed setting of regular wake up time between 6 and 7:00 a.m. and waking up consistently been if she has not gotten med sleep, this might put her into a better cycle of sleeping at night -Tried to minimize snacking in the middle of the night, recommended she try having a snack at bedtime that has protein/fiber in addition to carb -Recommended trying contacting her sleep specialist to see if they have any recommendations for sleep hygiene LIN PLANT OPERATOR Progress Notes - Office Visi t - 07/03/2024 - GA:12w1d 07/03/2024 - w1d - Sapna Forbes NP Patient reports that her nausea has improved. She does have some fatigue. Reports overall headaches are less than in the past. Feels that moods are improved. She will notice a intermittent shooting pains deep in her abdomen and she is not sure if that is movement of the baby. She suspects it may be musculoskeletal. She has had mostly normal bowel movements with minimal constipation. She is taking prenatals. Here today with her partner. Her weight is down 3 lb since last visit. Blood pressure normal. She denies vaginal bleeding, vaginal itching burning malodorous discharge or odor. FHR-152 TAPS Screen performed today 33-year-old at 12 weeks 1 day by LMP which equals 8 week ultrasound Patient desires NIPT today with gender-obtained and pending Counseled on autosomal recessive/X-linked disorder testing-patient elects to defer today-may consider in the future Ob labs-06/06/2024 O positive, antibody negative, rubella immune, varicella immune, hepatitis-B nonreactive, hepatitis-C nonreactive, RPR-nonreactive, H/H 13.4/39.9, MCV increased-99.3, platelets-220, ferritin-49, cchjcph-J-57, vitamin [id number], urine culture shows no growth Chronic /history of vitamin D deficiency Most recent hemoglobin normal, vitamin-D and B12 normal Patient can take 2000 IU D3 meew-yln-ktcfhbj daily if needed Encouraged prenatals with iron and increasing folate through diet. Will continue to monitor Encouraged protein intake in diet, good hydration Anxiety with depression Symptoms well controlled with Lexapro 10 mg, patient prefers to continue medication during Previously counseled on SSRI intake in Encouraged other nonpharmacological methods to help with symptoms including exercise, healthy eating, yoga, deep breathing, music therapy, meditation Denies SI or HI, will continue to monitor Insomnia Patient off of trazodone. Discussed other options including doxylamine, magnesium supplementation, Lavender oil Patient feels this is stable Abdominal discomfort Reports intermittent sharp pains and abdomen Denies fever chills UA today-small bilirubin, trace ketones, specific gravity-1.030, moderate blood, pH 7.0, protein noted urobilinogen negative nitrites and leukocytes-patient reports she did not drink much today-urine sent for UA with micro and urine culture- encouraged good hydration UTI/kidney stone precautions reviewed Patient denies signs and symptoms of vaginal infection and she is to contact us if she exhibits that. Prescribe antibiotics if warranted based on urine testing. Intermittent constipation Encouraged increase liquids, fiber, fruits vegetables in diet, discuss usage of MiraLax, Colace, low-dose magnesium at night to help with constipation and sleep Discussed that constipation can be contributory to pelvic discomfort Normal care UA as noted above Patient to contact us with vaginal bleeding or worrisome abdominal pain or cramps Flu vaccination offered and patient declined Continue meds Follow-up in the clinic in 4 weeks for an appointment with Dr. Lock Cosigned by Zina Lock MD at 07/03/2024 2:03 PM LANOLIN PLANT OPERATOR LIN PLANT OPERATOR LIN PLANT OPERATOR Progress Notes - Office Visi t - 06/06/2024 - GA:8w2d 06/06/2024 - 8w2d - Gustavo Lock MD Patient ID: Keiry Panchal is a 33 y.o. female Subjective Chief Complaint: Initial Visit (US: 8W 2D) HPI Keiry presents establish obstetrical care. She reports last menstrual period of 04/09/2024 and she has been having regular cycles. Overall she feels well. She denies any nausea, vomiting, urinary frequency or breast tenderness. She reports that she does have some fatigue, but she has always had chronic fatigue. She does follow a vegan diet and supplements with B12 and vitamin-D. She also reports a history of iron deficiency anemia and takes iron supplementation with vitamin-C. She was taking a vitamin. She is not aware of any family history of genetic disorders, chromosomal abnormalities, malformations or defects. She is not aware that her partner family has any of this history either. Denies any history of herpes. Review of Systems Constitutional: Fatigue: positive for chronic fatigue prior to . Gastrointestinal: Negative for abdominal pain, nausea and vomiting. Genitourinary: Negative for pelvic pain and vaginal bleeding. Breast: Negative for tenderness. Histories Medical Anxiety with depression, insomnia, ADD (no meds), hypercholesterolemia, vegan diet Surgical [place] tooth extraction [facility] She is a 2 para 1001. In December 2015 she had at 40w6d as baby nati [place]. She denies any history of abnormal Pap smear screening. Her most recent Pap smear from 09/13/2023 revealed normal cytology with negative high-risk HPV testing. Family Mother had breast cancer in her early 40s with negative genetic testing. Mother also has hypercholesterolemia. Father has hypertension and hypercholesterolemia. Maternal grandmother had breast cancer in her 70s. Paternal grandmother had rheumatoid arthritis. Maternal grandfather had heart disease. She was not aware of any other family history of cancer, diabetes, cardiovascular disease, thrombophilia or thromboembolic event. Social Patient reports that she has never smoked. She has never used smokeless tobacco. She reports that she does not currently use drugs. No alcohol history on file. Meds Current Outpatient Medications: cholecalciferol (VITAMIN D-3) 27805 unit tablet, Take 1 tablet (50,000 Units total) by mouth every 7 days, Disp: 12 tablet, Rfl: 1 cyanocobalamin (Vitamin B-12) 1,000 mcg tablet, Take 1 tablet (1,000 mcg total) by mouth daily, Disp: , Rfl: escitalopram (LEXAPRO) 20 mg tablet, Take 1 tablet (20 mg total) by mouth daily for 30 days, Disp: , Rfl: iron,carb/vit C/vit B12/folic (IRON 100 PLUS ORAL), Take 325 mg by mouth, Disp: , Rfl: vit 37-mprl-twifv-dha 27mg iron- 800 mcg-250 mg capsule, Take by mouth, Disp: , Rfl: traZODone (DESYREL) 100 mg tablet, Take 1 tablet (100 mg total) by mouth nightly as needed for sleep (Patient not taking: Reported on 06/06/2024), Disp: 90 tablet, Rfl: 3 Allergies Patient is allergic to penicillins and sulfa (sulfonamide antibiotics). Objective BP 120/78 Ht 165.1 cm (5' 5) Wt 203 lb 6.4 oz (92.3 kg) BMI 33.85 kg/m Physical Exam Constitutional: General: She is not in acute distress. Appearance: She is normal weight. Neurological: Mental Status: She is alert. Psychiatric: Mood and Affect: Mood normal. Ultrasound today reveals viable intrauterine with crown-rump length equal to 1.83 cm or 8 week 2 day gestation with positive heart motion 165 beats per minute. Yolk sac was visualized. Both ovaries are non cystic with left ovary measuring 3.0 x 1.7 x 1.4 cm and right ovary measuring 2.3 x 2.3 x 1.6 cm. No free fluid is noted in the posterior cul-de-sac. Assessment/Plan 1. 8 weeks gestation of (Primary) - POCT OB urine short dip (glucose, protein, ketones) - Hepatitis C antibody Blood; Future - CBC with auto differential; Future - Hepatitis B Surface Antigen Blood; Future - RPR Blood; Future - Rubella IgG antibody Blood; Future - Type and screen; Future - HIV 1/2 Antibody plus p24 Antigen Blood; Future - Urine culture Urine, clean voided; Future - Varicella Zoster IgG antibody Blood; Future - Vitamin B12; Future - Ferritin; Future - Vitamin D 25 hydroxy; Future - Vitamin D 25 hydroxy - Ferritin - Vitamin B12 - Varicella Zoster IgG antibody Blood - Urine culture Urine, clean voided - HIV 1/2 Antibody plus p24 Antigen Blood - Type and screen - Rubella IgG antibody Blood - RPR Blood - Hepatitis B Surface Antigen Blood - CBC with auto differential - Hepatitis C antibody Blood 2. Encounter for supervision of normal first in first trimester - POCT OB urine short dip (glucose, protein, ketones) - Hepatitis C antibody Blood; Future - CBC with auto differential; Future - Hepatitis B Surface Antigen Blood; Future - RPR Blood; Future - Rubella IgG antibody Blood; Future - Type and screen; Future - HIV 1/2 Antibody plus p24 Antigen Blood; Future - Urine culture Urine, clean voided; Future - Varicella Zoster IgG antibody Blood; Future - Vitamin B12; Future - Ferritin; Future - Vitamin D 25 hydroxy; Future - Vitamin D 25 hydroxy - Ferritin - Vitamin B12 - Varicella Zoster IgG antibody Blood - Urine culture Urine, clean voided - HIV 1/2 Antibody plus p24 Antigen Blood - Type and screen - Rubella IgG antibody Blood - RPR Blood - Hepatitis B Surface Antigen Blood - CBC with auto differential - Hepatitis C antibody Blood A/P 33 y.o. @ 8w2d by LMP=8w ultrasound 1. Supervision -Reviewed good nutrition and dietary limitations during , she is getting adequate amount of folate with vitamins -Physical activity exercise limitations reviewed, benefits of regular exercise and appropriate weight gain reviewed -Toxoplasma and CMV precautions reviewed -Reviewed optional genetic carrier screening for autosomal recessive/X-linked disorders -Reviewed aneuploidy screening with cell free DNA and NT ultrasound - labs obtained today 2. Vegan diet -B12 and vitamin-D level checked today -Continue B12 and vitamin-D supplementation 3. History of iron deficiency anemia -Ferritin in addition to CBC checked today -Continue iron supplementation and instructed to take iron at a separate time from vitamin with iron 4. Anxiety with depression -Symptoms well controlled with Lexapro 10 mg daily, patient prefers to continue medication during -Risks/benefits/indications for SSRI use during reviewed 5. Insomnia -Patient self-discontinued trazodone prior to -Reviewed sleep hygiene, doxylamine, magnesium supplementation as possible options LIN PLANT OPERATOR Last Filed Vital Signs Vital Sign Reading Time Taken Comments Blood Pressure 124/72 12/03/2024 1:24 PM CDT Pulse 101 08/23/2024 1:23 PM LANOLIN PLANT OPERATOR Temperature 36.4 C (97.6 F) 08/23/2024 1:23 PM LANOLIN PLANT OPERATOR Respiratory Rate 18 08/23/2024 1:23 PM LANOLIN PLANT OPERATOR Oxygen Saturation 98% 08/23/2024 1:23 PM LANOLIN PLANT OPERATOR Inhaled Oxygen Concentration - - Weight 101.6 kg (224 lb) 12/03/2024 1:24 PM CDT Height 165.1 cm (5' 5) 11/21/2024 1:20 PM CDT Body Mass Index 37.28 11/21/2024 1:20 PM CDT Plan of Treatment Health Maintenance Due Date Last Done Comments Breast Cancer Screening-Mammogram 1991 Covid-19 Vaccine ( season) 2024 10/17/2020, 09/28/2020 Cervical Cancer Screening 09/13/20242023, 09/13/2023, 05/28/2015 Regular Well Visit/Exam 18-64 12/07/2024 12/08/2023, 08/11/2021 Depression Screening 07/13/2025 07/13/2024, 01/11/2024, 12/08/2023, Additional history exists DTaP/Tdap/Td Vaccine (3 - Td or Tdap) 11/21/2034 11/21/2024, 11/16/2015 Hepatitis B Screening Completed 09/10/2020 Hepatitis C Screening Completed 06/06/2024, 022 HPV Vaccines Aged Out No longer eligi ble based on patient's age to complete this topic Influenza Vaccine Discontinued Pneumococcal vaccine <65 Aged Out No longer eligible based on patient's age to complete this topic Varicella Vaccines Discontinued Procedures Procedure Name Priority Date/Time Associated Diagnosis [...] HEPATITIS C ANTIBODY Routine 06/06/2024 3:49 PM LANOLIN PLANT OPERATOR 8 weeks gestation of Encounter for supervision of normal first in first trimester HIGH RISK HPV DNA DETECTION WITH GENOTYPING Routine 09/13/2023 11:37 AM LANOLIN PLANT OPERATOR Encounter for well woman exam with routine gynecological exam from Last 3 Months or Most Recently Relevant to Health Maintenance Results * POCT OB urine short dip (glucose, protein, ketones) (12/03/2024 1:34 PM CDT) Glucose, ur, POC Negative Negative Protein, ur, POC Negative Negative Ketones, ur, POC Negative Negative Lot Number [id number] Urine 12/03/2024 1:34 PM CDT Zina Lock MD POINT OF CARE TEST ORDERABLES Final Result * POCT OB urine short dip (glucose, protein, ketones) (11/21/2024 1:27 PM CDT) Glucose, ur, POC Negative Negative Protein, ur, POC Negative Negative Ketones, ur, POC Negative Negative Lot Number [id number] Urine 11/21/2024 1:27 PM CDT Result [facility] Zina Lock MD POINT OF CARE TEST ORDERABLES Final Result * POCT OB urine short dip (glucose, protein, ketones) (11/05/2024 1:31 PM CDT) Glucose, ur, POC Negative Negative MG/DL Protein, ur, POC Negative Negative Ketones, ur, POC Negative Negative Lot Number [id number] Urine 11/05/2024 1:31 PM CDT Result [facility] Sapna Forbes NP POINT OF CARE TEST ORDERABL ES Final Result * (ABNORMAL) POCT OB urine short dip (glucose, protein, ketones) (10/22/2024 1:32 PM CDT) Glucose, ur, POC Negative Negative MG/DL Protein, ur, POC 1+(A) Negative Ketones, ur, POC Negative Negative Lot Number [id number] Urine 10/22/2024 1:32 PM CDT Result [facility] Zina Lock MD POINT OF CARE TEST ORDERABLES Final Result * (ABNORMAL) Differential, auto (10/22/2024 1:13 PM CDT) Neutrophil abs 7.87(H) 1.50 - 6.50 K/cumm Imm gran abs 0.13(H) 0.00 - 0.10 K/cumm [facility] Lymphocyte abs 1.49 0.80 - 3.30 K/cumm [facility] Monocyte abs 0.38 0.20 - 0.80 K/cumm [facility] Eosinophil abs 0.10 0.00 - 0.50 K/cumm [facility] Basophil abs 0.05 0.00 - 0.10 K/cumm [facility] Neutrophil pct 78.5 % [facility] Comment: Interpretive Data Percent cell count reference ranges are not reported, since discordance with absolute values may lead to misinterpretation of CBC data. Current Interpretive Data was last revised on 2017. Imm gran pct 1.3 % [facility] Comment: Interpretive Data Percent cell count reference ranges are not reported, since discordance with absolute values may lead to misinterpretation of CBC data. Current Interpretive Data was last revised on 2017. Lymphocyte pct 14.9 % [facility] Comment: Interpretive Data Percent cell count reference ranges are not reported, since discordance with absolute values may lead to misinterpretation of CBC data. Current Interpretive Data was last revised on 2017. Monocyte pct 3.8 % [facility] Comment: Interpretive Data Percent cell count reference ranges are not reported, since discordance with absolute values may lead to misinterpretation of CBC data. Current Interpretive Data was last revised on 2017. Eosinophil pct 1.0 % [facility] Comment: Interpretive Data Percent cell count reference ranges are not reported, since discordance with absolute values may lead to misinterpretation of CBC data. Current Interpretive Data was last revised on 2017. Basophil pct 0.5 % [facility] Comment: Interpretive Data Percent cell count reference ranges are not reported, since discordance with absolute values may lead to misinterpretation of CBC data. Current Interpretive Data was last revised on 2017. Blood 10/22/2024 1:13 PM CDT 10/22/2024 8:09 PM CDT us Zina Lock MD LAB BLOOD ORDERABLES Final Res ult [facility] [address] Department [place] [address] * GTT 50gm 1hr gestational screen (10/22/2024 [...] MD LAB BLOOD ORDERABLES Final Res ult [facility] [address] Department [place] [address] * (ABNORMAL) CBC with auto differential (10/22/2024 1:13 PM CDT) WBC 10.02(H) 3.80 - 9.90 K/cumm Hgb 12.0 11.9 - 15.5 g/dL [facility] Hct 37.3 35.6 - 45.5 % [facility] Plt 227 150 - 400 K/cumm [facility] MPV 9.5 9.1 - 12.[address] [facility] RBC 3.81(L) 3.90 - 5.20 M/cumm [facility] MCV 97.9(H) 81.3 - 96.[address] [facility] MCH 31.5 27.1 - 33.[address] [facility] MCHC 32.2(L) 32.3 - 35.7 g/dL [facility] RDW CV 13.9 11.1 - 14.9 % [facility] RDW SD 50.1(H) 35.7 - 48.[address] [facility] NRBC abs 0.00 0.00 - 0.01 K/cumm [facility] Blood 10/22/2024 1:13 PM CDT 10/22/2024 8:09 PM CDT Zina Lock MD LAB BLOOD ORDERABLES Final Res ult [facility] [address] [employer] [place] [address] * RPR Blood (10/22/2024 1:13 PM CDT) Pathologist [facility] RPR Nonreactive Nonreactive Comment:Testing performed by : [facility], [address] [place]., [address] Blood 10/22/2024 1:13 PM CDT 10/23/2024 12:50 AM CDT Zina Lock MD LAB MICROBIOLOGY - GENERAL ORD ERABLES Final Result Performing Organization Address [facility]/ZIP Co de Phone Number [facility] [address] Department [place] [address] * POCT OB urine short dip (glucose, protein, ketones) (09/24/2024 1:28 PM CDT) Pathologist [facility] Glucose, ur, POC Negative Negative MG/DL Protein, ur, POC Negative Negative Ketones, ur, POC Negative Negative Lot Number [id number] Urine 09/24/2024 1:28 PM CDT Result [facility] Zina Lock MD POINT OF CARE TEST ORDERABLES Final Result * Hepatitis C antibody Blood (06/06/2024 3:49 PM LANOLIN PLANT OPERATOR) Pathologist [facility] Hep C Ab Nonreactive Nonreactive Comment: Interpretive [...] revised on 2019. Blood 06/06/2024 3:49 PM LANOLIN PLANT OPERATOR 06/06/2024 7:01 PM LANOLIN PLANT OPERATOR us Zina Lock MD LAB MICROBIOLOGY - GENERAL ORD ERABLES Final Result [facility] [address] Department [place] [address] * High Risk HPV DNA Detection with Genotyping (Molecular component) (09/13/2023 11:37 AM LANOLIN PLANT OPERATOR) HPV HR [address] [facility] HPV HR [address]ed Not Detected [facility] HPV HR Non 16/[address] Detected [facility] Comment: Interpretive Data Nucleic acid amplification for [...] this test have been verified by the [facility]. Correlate with separately reported cytology results, as applicable. Interpretive data last revised 23 Endocervical 09/13/2023 11:3 7 AM LANOLIN PLANT OPERATOR 09/13/2023 9:26 PM LANOLIN PLANT OPERATOR Narrative [facility] - 09/16/2023 8:38 PM LANOLIN PLANT OPERATOR Clinical history and diagnosis->well woman exam Testing type->Screening Last menstrual period (date if known)->08/16/2023 us Sapna Forbes NP LAB BODY FLUIDS AND STOOLS ORDERABLES Final Result Performing Organization Address [facility]/ZIP Co de Phone Number [facility] [address] Department [place] [address] from Last 3 Months or Most Recently Relevant to Health Maintenance [place] Care Teams Embroidery Operator Relationship Specialty Start Date End Date Maggy Wright NP [address] [facility] [address] [place] [address] PCP - General Internal Medicine 12/08/23
--- OUTSIDE RECORDS SUMMARY | 2024-12-22 13:14 | XMS_ITS | Encounter Summary ---
Author Organization [facility] Healthcare Address [address] [place] [address] Care Team Providers Care Miller Apprentice Name Role Phone Maggy Wright NP Primary Care Provider [phone] Reason for Visit * Reason Onset Date Comments Medication Problem 12/22/2024 Encounter Details Date Type Department Care Team (Late st Contact Info) Description 12/22/2024 Nurse Triage [facility] Medical Group Family Medicine [address] [place] [address] Maggy Wright, GEOPHYSICAL PROSPECTOR [address] [place] [address] Social History Tobacco Use Types Packs/Day Years Used Date Smoking Tobacco: Never Smokeless Tobacco: Never Alcohol Use Standard Drinks/Week Comments Yes 0 [...] on file Legal Sex Female 2:00 AM MANAGER MEDICAID Gender Identity Female 08/11/2021 9:42 AM MANAGER MEDICAID Sexual Orientation Straight 08/11/2021 9: 42 AM MANAGER MEDICAID documented as of this encounter Miscellaneous Notes * Telephone Encounter - Ofelia Islas RN - 12/22/2024 12:43 PM CDT Reason for Conversation Medication Problem Background Keiry Panchal states she took a Trazodone tablet accidentally today around [id number]. She had taken all of her medications from her pill container about minutes ago ( vitamin, Vit B/C/D and iron). She states she mistook the Trazodone for her Lexapro. She will be 37 weeks on Tuesday12/24/24 and had discontinued the Trazodone when she found out (she) was . About 20 minutesafterwards, she began to feel symptoms of really dizzy, michelle hard to focus and see a little bit. I'm very tired, lethargic. Denies abdominal or chest pain/SOB/weakness/vomiting. Advised patient not to induce vomiting and call Poison Control now at [phone]. Patient thankdaniel LOW and verbalized understanding. Routing FYI to office. Disposition Call Poison Center Now Reason for Disposition Triager unable to answer question Protocols Used [id number] * Telephone Encounter - Ofelia Islas RN - 12/22/2024 12:40 PM CDT Regarding: pt 8 months and took the wrong pill ----- Message from Leo Akbar sent at 12/22/2024 12:39 PM CDT ----- Chief concern: took a sleeping pill and it is not safe for - pt is 8 months . Was trying to take an anti depressent pill but took the wrong one Duration: 20 minutes ago Callback #: [phone] Additional Information: doziness and dizziness documented in this encounter Plan of Treatment Not on file documented as of this encounter Visit Diagnoses Not on filedocumented in this encounter Care Teams Miller Apprentice Relationship Specialty Start Date End Date Maggy Wright NP [address] [facility] [address] [place] [address] PCP - General Internal Medicine 12/08/23 documented as of this encounter
[2024-12-22 13:23] VITALS: BP 138/86; PULSE 111; PULSE 112; RESP 13; O2SAT 98
--- OUTSIDE RECORDS SUMMARY | 2024-12-22 13:41 | XMS_ITS | Referral Summary ---
Author Organization [facility] Address [address] [place] [phone] Care Team Providers Care Construction Engineering Manager Name Role Phone Maggy Wright NP Primary Care Provider Encounters Date Type Department Care Team Description 12/22/2024 Nurse Triage [facility] Medical Group Family Medicine [address] [facility] [address] [place] [phone] Maggy Wright NP 12/03/2024 1:15 PM CDT Office Visit [facility] at [address] [phone] Zina Lock MD Encounter for supervision of other normal in third trimester (Primary Dx); 34 weeks gestation of 11/21/2024 1:15 PM CDT Office Visit [facility] at [address] [place] [phone] Zina Lock MD care, subsequent in third trimester (Primary Dx); 32 weeks gestation of 11/05/2024 1:00 PM CDT Office Visit [facility] at [address] [place] [phone] Sapna Forbes NP care, subsequent in third trimester (Primary Dx); 29 weeks gestation of 10/22/2024 1:55 PM CDT - 10/22/2024 11:59 PM CDT Hospital Encounter [facility] [address] [place] [address] Discharge Disposition: Discharge to home or self care 10/22/2024 1:30 PM CDT [facility] Visit [facility] at [address] [place] [address] Zina Lock MD Encounter for supervision of other normal in third trimester (Primary Dx); 28 weeks gestation of ; Screening for diabetes mellitus 09/24/2024 1:00 PM CDT [facility] [address] [place] [address] Zina Lock MD Encounter for [...] daily for 30 days 08/03/2023 Active vit [id number] a 27mg iron- 800 mcg-250 mg capsule [...] instead Assessment & Plan (08/11/2021 3:47 PM BANKMAN): -will refer to Sleep Medicine for further eval pending normal labs. -patient to sleep medicine that she years ago but did not complete workup. -chronic problem, patient has difficulty getting Ki quality sleep. Chronic fatigue most the day. Consumes a vegan diet 08/11/2021 Assessment & Plan (08/11/2021 3:47 PM BANKMAN): -will check B12 and folate Family history of breast cancer in mother 2021 Assessment & Plan (08/11/2021 3:47 PM BANKMAN): -family history of breast cancer mother at age mid 40s -referral to high risk breast Cancer Clinic Anxiety 02/03/2012 Assessment & Plan (08/11/2021 3:49 PM BANKMAN): -anxiety/depression/ADHD -follows up with Psychiatry. Acquired deviated [...] 08/11/20212023 Assessment & Plan (08/11/2021 3:48 PM BANKMAN): -labs today -up-to-date with COVID vaccine however [...] 06/06/2024 Assessment & Plan (08/11/2021 3:47 PM BANKMAN): -requesting referral to cardiology. Palpitations, occurs a [...] on file Legal Sex Female 2:00 AM BANKMAN Gender Identity Female 08/11/2021 9:42 AM BANKMAN Sexual Orientation Straight 08/11/2021 9: 42 AM BANKMAN Last Filed Vital Signs Vital Sign Reading Time Taken Comments Blood Pressure 124/72 12/03/2024 1:24 PM CDT Pulse 101 08/23/2024 1:23 PM BANKMAN Temperature 36.4 C (97.6 F) 08/23/2024 1:23 PM BANKMAN Respiratory Rate 18 08/23/2024 1:23 PM BANKMAN Oxygen Saturation 98% 08/23/2024 1:23 PM BANKMAN Inhaled Oxygen Concentration - - Weight 101.6 [...] HEPATITIS C ANTIBODY Routine 06/06/2024 3:49 PM BANKMAN 8 weeks gestation of Encounter for supervision of normal first in first trimester HIGH RISK HPV DNA DETECTION WITH GENOTYPING Routine 09/13/2023 11:37 AM BANKMAN Encounter for well woman exam with routine gynecological exam from Last 3 Months or Most Recently Relevant to Health Maintenance Results * POCT OB urine short dip (glucose, protein, ketones) (12/03/2024 1:34 PM CDT) Glucose, ur, POC Negative Negative Protein, ur, POC Negative Negative Ketones, ur, POC Negative Negative Lot Number [id number] Urine 12/03/2024 1:34 PM CDT us Zina oLck MD POINT OF CARE TEST ORDERABLES Final [...] [id number] Urine 11/05/2024 1:31 PM CDT Result [facility] Sapna Forbes NP POINT OF CARE TEST ORDERABL ES Final Result * (ABNORMAL) POCT OB urine short dip (glucose, protein, ketones) (10/22/2024 1:32 PM CDT) Glucose, ur, POC Negative Negative MG/DL Protein, ur, POC 1+(A) Negative Ketones, ur, POC Negative Negative Lot Number [id number] Urine 10/22/2024 1:32 PM CDT Result [facility] Zina Lock MD POINT OF CARE TEST ORDERABLES Final Result * (ABNORMAL) Differential, auto (10/22/2024 1:13 PM CDT) Pathologist [facility] Neutrophil abs 7.87(H) 1.50 - 6.50 K/cumm Imm gran abs 0.13(H) 0.00 - 0.10 K/cumm [facility] Lymphocyte abs 1.49 0.80 - 3.30 K/cumm [facility] Monocyte abs 0.38 0.20 - 0.80 K/cumm [facility] Eosinophil abs 0.10 0.00 - 0.50 K/cumm [facility] Basophil abs 0.05 0.00 - 0.10 K/cumm [facility] Neutrophil pct 78.5 % [facility] Comment: Interpretive Data Percent cell count reference ranges are not reported, since discordance with absolute values may lead to misinterpretation of CBC data. Current Interpretive Data was last revised on 2017. Imm gran pct 1.3 % [facility] Comment: Interpretive Data Percent cell count reference ranges are not reported, since discordance with absolute values may lead to misinterpretation of CBC data. Current Interpretive Data was last revised on 2017. Lymphocyte pct 14.9 % [facility] Comment: Interpretive Data Percent cell count reference ranges are not reported, since discordance with absolute values may lead to misinterpretation of CBC data. Current Interpretive Data was last revised on 2017. Monocyte pct 3.8 % [facility] Comment: Interpretive Data Percent cell count reference ranges are not reported, since discordance with absolute values may lead to misinterpretation of CBC data. Current Interpretive Data was last revised on 2017. Eosinophil pct 1.0 % [facility] Comment: Interpretive Data Percent cell count reference ranges are not reported, since discordance with absolute values may lead to misinterpretation of CBC data. Current Interpretive Data was last revised on 2017. Basophil pct 0.5 % [facility] Comment: Interpretive Data Percent cell count reference ranges are not reported, since discordance with absolute values may lead to misinterpretation of CBC data. Current Interpretive Data was last revised on 2017. Blood 10/22/2024 1:13 PM CDT 10/22/2024 8:09 PM CDT Zina Lock MD LAB BLOOD ORDERABLES Final Res ult [facility] [address] Department [place] [address] * GTT 50gm 1hr gestational screen (10/22/2024 [...] ORDERABLES Final Res ult Performing Organization Address [facility] Co de Phone Number [facility] [address] [place] [address] * (ABNORMAL) CBC with auto differential (10/22/2024 1:13 PM CDT) [facility] WBC 10.02(H) 3.80 - 9.90 K/cumm Hgb 12.0 11.9 - 15.5 g/dL [facility] Hct 37.3 35.6 - 45.5 % [facility] Plt 227 150 - 400 K/cumm [facility] MPV 9.5 9.1 - 12.3 fL [facility] RBC 3.81(L) 3.90 - 5.20 M/cumm [facility] MCV 97.9(H) 81.3 - 96.4 fL [facility] MCH 31.5 27.1 - 33.3 pg [facility] MCHC 32.2(L) 32.3 - 35.7 g/dL [facility] RDW CV 13.9 11.1 - 14.9 % [facility] RDW SD 50.1(H) 35.7 - 48.1 fL [facility] NRBC abs 0.00 0.00 - 0.01 K/cumm [facility] Blood 10/22/2024 1:13 PM CDT 10/22/2024 8:09 PM CDT Zina Lock MD LAB BLOOD ORDERABLES Final Res ult Performing Organization Address [facility]/ZIP Co de Phone Number [facility] [address] [place] [address] * RPR Blood (10/22/2024 1:13 PM CDT) [facility] RPR Nonreactive Nonreactive Comment:Testing performed by : [facility], [address] [facility], [place]., [address] Blood 10/22/2024 1:13 PM CDT 10/23/2024 12:50 AM CDT Result [facility] Zina Lock MD LAB MICROBIOLOGY - GENERAL ORD ERABLES Final Result Performing Organization Address [facility] Co de Phone Number [facility] [address] [place] [address] * POCT OB urine short dip (glucose, protein, ketones) (09/24/2024 1:28 PM CDT) [facility] Glucose, ur, POC Negative Negative MG/DL Protein, ur, POC Negative Negative Ketones, ur, POC Negative Negative Lot Number [id number] Urine 09/24/2024 1:28 PM CDT Result [facility] Zina Lock MD POINT OF CARE TEST ORDERABLES Final Result * Hepatitis C antibody Blood (06/06/2024 3:49 PM BANKMAN) [facility] Hep C Ab Nonreactive Nonreactive Comment: Interpretive [...] revised on 2019. Blood 06/06/2024 3:49 PM BANKMAN 06/06/2024 7:01 PM BANKMAN Result [facility] Zina Lock MD LAB MICROBIOLOGY - GENERAL ORD ERABLES Final Result Performing Organization Address City/[facility]/ZIP Co de Phone Number [facility] [address] [place] [address] * High Risk HPV DNA Detection with Genotyping (Molecular component) (09/13/2023 11:37 AM BANKMAN) [facility] HPV HR 16 Not Detected Not Detected [facility] HPV HR 18 Not Detected Not Detected [facility] HPV HR Non 16/18 Not Detected Not Detected [facility] Comment: Interpretive Data Nucleic acid [...] this test have been verified by the [facility]. Correlate with separately reported cytology results, as applicable. Interpretive data last revised 23 Endocervical 09/13/2023 11:3 7 AM BANKMAN 09/13/2023 9:26 PM BANKMAN Narrative [facility] - 09/16/2023 8:38 PM BANKMAN Clinical history and diagnosis->well woman exam Testing type->Screening Last menstrual period (date if known)->08/16/2023 Sapna Forbes NP LAB BODY FLUIDS AND STOOLS ORDERABLES Final Result [facility] [address] Department [place] [address] from Last 3 Months or Most Recently Relevant to Health Maintenance [place] Care Teams Construction Engineering Manager Relationship Specialty Start Date End Date Maggy Wright NP [address] [facility] [address] [place], [place] [id number] PCP - General Internal Medicine 12/08/23
--- OUTSIDE RECORDS SUMMARY | 2024-12-22 13:41 | XMS_ITS | Clinical Summary ---
Author Organization [facility] Care Team Providers Care Memory Care Program Director Name Role Phone Unavailable Primary Care Provider Unavailabl e Social History Tobacco Use Types Packs/Day Years Used Date Smoking Tobacco: Never Assessed Comments Unknown Sex and Gender Information Value Date Recorded Sex Assigned at Not on file Legal Sex Female 2:38 PM WOVEN WOOD SHADE ASSEMBLER Gender Identity Not on file Sexual Orientation [...]
--- OUTSIDE RECORDS SUMMARY | 2024-12-22 13:41 | XMS_ITS | Continuity of Care Document ---
Author Organization [facility] Address [address] [place] [address] Phone Care Team Providers Care Rn Medical Inpatient Services Name Role Phone Carlos Nichols MD Unavailable Unavailable Advance Directives Directive Yes / No Effective Date File Name No Information Encounters Encounter Description Practice Location Reason(s) For Visit Diagnoses Date Provider Providers Copied on Encounter [facility], [address], [place], [place], [id number], [place] tel:[phone] [facility] No Information 7 5 Magdalena Gonzalez. [address] [place], [id number], [place]. tel:[phone] Family History Family Member Type Diagnosis Age At Onset No Information Payers Payer name Insurance type Covered alliance party ID Authorannettea ambreen(s) [facility] Commercial CI [id number] Social History Type Description Quantity Date Captured [...]
--- OUTSIDE RECORDS SUMMARY | 2024-12-22 13:41 | XMS_ITS | Encounter Summary ---
Author Organization [facility] Healthcare Address [address] [place] [address] Care Team Providers Care Managed Services Sales Consultant Name Role Phone Maggy Wright NP Primary Care Provider [phone] Reason for Visit * Reason Onset Date Comments Medication Problem 12/22/2024 Encounter Details Date Type Department Care Team (Late st Contact Info) Description 12/22/[address] [facility] Medical Group Family Medicine [address] [place] [address] Maggy Wright, INFORMATICA ARCHITECT [address] [place] [address] Social History Tobacco Use Types [...] on file Legal Sex Female 2:00 AM BINDERY MACHINE OPERATOR Gender Identity Female 08/11/2021 9:42 AM BINDERY MACHINE OPERATOR Sexual Orientation Straight 08/11/2021 9: 42 AM BINDERY MACHINE OPERATOR documented as of this encounter Miscellaneous Notes * Telephone Encounter - Ofelia Islas RN - 12/22/2024 12:43 PM CDT Reason for Conversation Medication Problem Background Keiry Panchal states she took a Trazodone tablet accidentally today around [id number]. She had taken all of her medications [...] vomiting and call Poison Control now at [phone]. Patient thankdaniel LOW and verbalized understanding. Routing FYI to office. Disposition Call Poison Center Now Reason for Disposition Triager unable to answer question Protocols Used [id number] * Telephone Encounter - Oeflia Islas RN - 12/22/2024 12:40 PM CDT [...] one Duration: 20 minutes ago Callback #: [phone] Additional Information: doziness and dizziness documented in this encounter Plan of Treatment Not on file documented as of this encounter Visit Diagnoses Not on filedocumented in this encounter Care Teams Managed Services Sales Consultant Relationship Specialty Start Date End Date Maggy Wright NP [address] [facility] [facility] [facility] [address] [place] [address] PCP - General Internal Medicine 12/08/23 documented as of this encounter
--- OUTSIDE RECORDS SUMMARY | 2024-12-22 13:41 | XMS_ITS | Clinical Summary ---
Author Organization [facility] Address [address] [place] [id number] Care Team Providers Care Buildings And Grounds Coordinator Name Role Phone Maggy Wright NP Primary Care Provider [phone] Allergies Active Allergy Reactions Criticality Noted Date Comments Penicillins Hives,Other (See comments) Medium Reaction: HIVES, Reaction: Unknown, , Sulfa (Sulfonamide Antibiotics) Hives,Other (See comments) Medium Reaction: HIVES, Reaction: Unknown, , Medications escitalopram (LEXAPRO) 20 mg tablet Take 1 tablet (20 mg total) by mouth daily for 30 days 08/03/2023 Active vit 44-ecjt-oefzs-dh a 27mg iron- 800 mcg-250 mg capsule [...] instead Assessment & Plan (08/11/2021 3:47 PM LYE BATH OPERATOR): -will refer to Sleep Medicine for further eval pending normal labs. -patient to sleep medicine that she years ago but did not complete workup. -chronic problem, patient has difficulty getting Ki quality sleep. Chronic fatigue most the day. Consumes a vegan diet 08/11/2021 Assessment & Plan (08/11/2021 3:47 PM LYE BATH OPERATOR): -will check B12 and folate Family history of breast cancer in mother 2021 Assessment & Plan (08/11/2021 3:47 PM LYE BATH OPERATOR): -family history of breast cancer mother at age mid 40s -referral to high risk breast Cancer Clinic Anxiety 02/03/2012 Assessment & Plan (08/11/2021 3:49 PM LYE BATH OPERATOR): -anxiety/depression/ADHD -follows up with Psychiatry. Acquired [...] 08/11/20212023 Assessment & Plan (08/11/2021 3:48 PM LYE BATH OPERATOR): -labs today -up-to-date with COVID vaccine [...] 06/06/2024 Assessment & Plan (08/11/2021 3:47 PM LYE BATH OPERATOR): -requesting referral to cardiology. Palpitations, occurs a few times year. Happens when she is not having panic attack. Anemia 02/17/2014 06/06/2024 Overview (10/22/2016): Anemia Encounters Date Type Department Care Team Description 12/22/2024 Nurse Triage [facility] Family Medicine [address] [address] Maggy Wright NP 12/03/2024 1:15 PM CDT Office Visit [facility] at [address] [place] [phone] Zina Lock MD Encounter for supervision of other normal in third trimester (Primary Dx); 34 weeks gestation of 11/21/2024 1:15 PM CDT Office Visit [facility] at [address] [phone] Zina Lock MD care, subsequent in third trimester (Primary Dx); 32 weeks gestation of 11/05/2024 1:00 PM CDT Office Visit [facility] at [address] [place] [phone] Sapna Forbes NP care, subsequent in third trimester (Primary Dx); 29 weeks gestation of 10/22/2024 1:55 PM CDT - 10/22/2024 11:59 PM CDT Hospital Encounter [address] [place] [address] Discharge Disposition: Discharge to home or self care 10/22/2024 1:30 PM CDT Office Visit [facility] at [address] [place] [address] Zina Lock MD Encounter for supervision of other normal in third trimester (Primary Dx); 28 weeks gestation of ; Screening for diabetes mellitus 09/24/2024 1:00 PM CDT Office Visit [facility] at [address] [place] [address] Zina Lock MD Encounter for [...] Mother Sweta connorsa Miscarriages / Stillbirths Mother Sweta connorsa Depression Mother's Sister Tona Mayer Alzheimer's [...] on file Legal Sex Female 2:00 AM LYE BATH OPERATOR Gender Identity Female 08/11/2021 9:42 AM LYE BATH OPERATOR Sexual Orientation Straight 08/11/2021 9: 42 AM LYE BATH OPERATOR Obstetrics History Para Term AB IAB [...] Planned delivery method:Vaginal Planned delivery location:Other - [facility] al Location Overview Baby Name ANGELIKA Vitals [...] is planning on meeting with certified nurse technology advisor at [facility] in [facility]. She desires home , but has not yet met CNMW who has offering this service to her in [place]. She reports that CNMW was a labor [...] reports that she has met with a technology advisor and is planning to deliver at home but desires to continue care with our office. Desires to get a copy of her medical records. Weight is up 3 lb since last visit. Blood pressure normal. She reports recently she has not been as consistent with taking iron and vitamin-D. Patient offered machine repairman with visit and patient declined 33-year-old at [...] time. Has been counseled on safe options beyx-bra-jpdzjai including Unisom, magnesium, Lavender oil, Benadryl. Patient [...] counts advised daily as needed Has a nurse assistant, getting a car seat, getting a new [...] - Lorena Mora RDMS See ultrasound report BATH OPERATOR Progress Notes - Office Visi t [...] they have any recommendations for sleep hygiene BATH OPERATOR Progress Notes - Office Visi t [...] RPR-nonreactive, H/H 13.4/39.9, MCV increased-99.3, platelets-220, ferritin-49, nkzplre-H-12, vitamin C29-8452, urine culture shows no growth Chronic /history of vitamin D deficiency Most recent hemoglobin normal, vitamin-D and B12 normal Patient can take 2000 IU D3 lehs-mfs-uoixubq daily if needed Encouraged prenatals with iron [...] Zina Lock MD at 07/03/2024 2:03 PM LYE BATH OPERATOR BATH OPERATOR BATH OPERATOR Progress Notes - Office Visi t [...] ADD (no meds), hypercholesterolemia, vegan diet Surgical [place] tooth extraction OBGYN She is a 2 [...] Meds Current Outpatient Medications: cholecalciferol (VITAMIN D-3) 65739 unit tablet, Take 1 tablet (50,000 Units [...] mg by mouth, Disp: , Rfl: vit 54-updq-hatxu-dha 27mg iron- 800 mcg-250 mg capsule, Take [...] hygiene, doxylamine, magnesium supplementation as possible options BATH OPERATOR Last Filed Vital Signs Vital Sign Reading Time Taken Comments Blood Pressure 124/72 12/03/2024 1:24 PM CDT Pulse 101 08/23/2024 1:23 PM LYE BATH OPERATOR Temperature 36.4 C (97.6 F) 08/23/2024 1:23 PM LYE BATH OPERATOR Respiratory Rate 18 08/23/2024 1:23 PM LYE BATH OPERATOR Oxygen Saturation 98% 08/23/2024 1:23 PM LYE BATH OPERATOR Inhaled Oxygen Concentration - - Weight [...] HEPATITIS C ANTIBODY Routine 06/06/2024 3:49 PM LYE BATH OPERATOR 8 weeks gestation of Encounter for supervision of normal first in first trimester HIGH RISK HPV DNA DETECTION WITH GENOTYPING Routine 09/13/2023 11:37 AM LYE BATH OPERATOR Encounter for well woman exam with [...] 1234 Urine 11/21/2024 1:27 PM CDT Result [facility] Zina Lock MD POINT OF CARE TEST ORDERABLES Final Result * POCT OB urine short dip (glucose, protein, ketones) (11/05/2024 1:31 PM CDT) Glucose, ur, POC Negative Negative MG/DL Protein, ur, POC Negative Negative Ketones, ur, POC Negative Negative Lot Number [id number] Urine 11/05/2024 1:31 PM CDT Result [facility] Sapna Forbes NP POINT OF CARE TEST ORDERABL ES Final Result * (ABNORMAL) POCT OB urine short dip (glucose, protein, ketones) (10/22/2024 1:32 PM CDT) Glucose, ur, POC Negative Negative MG/DL Protein, ur, POC 1+(A) Negative Ketones, ur, POC Negative Negative Lot Number 75 Urine 10/22/2024 1:32 PM CDT Result [facility] Zina Lock MD POINT OF CARE TEST ORDERABLES Final Result * (ABNORMAL) Differential, auto (10/22/2024 1:13 PM CDT) Neutrophil abs 7.87(H) 1.50 - 6.50 K/cumm Imm gran abs 0.13(H) 0.00 - 0.10 K/cumm [facility] Lymphocyte abs 1.49 0.80 - 3.30 K/cumm [facility] Monocyte abs 0.38 0.20 - 0.80 K/cumm [facility] Eosinophil abs 0.10 0.00 - 0.50 K/cumm [facility] Basophil abs 0.05 0.00 - 0.10 K/cumm [facility] Neutrophil pct 78.5 % [facility] Comment: Interpretive Data Percent cell count reference ranges are not reported, since discordance with absolute values may lead to misinterpretation of CBC data. Current Interpretive Data was last revised on 2017. Imm gran pct 1.3 % [facility] Comment: Interpretive Data Percent cell count reference ranges are not reported, since discordance with absolute values may lead to misinterpretation of CBC data. Current Interpretive Data was last revised on 2017. Lymphocyte pct 14.9 % [facility] Comment: Interpretive Data Percent cell count reference ranges are not reported, since discordance with absolute values may lead to misinterpretation of CBC data. Current Interpretive Data was last revised on 2017. Monocyte pct 3.8 % [facility] Comment: Interpretive Data Percent cell count reference ranges are not reported, since discordance with absolute values may lead to misinterpretation of CBC data. Current Interpretive Data was last revised on 2017. Eosinophil pct 1.0 % [facility] Comment: Interpretive Data Percent cell count reference ranges are not reported, since discordance with absolute values may lead to misinterpretation of CBC data. Current Interpretive Data was last revised on 2017. Basophil pct 0.5 % [facility] Comment: Interpretive Data Percent cell count reference ranges are not reported, since discordance with absolute values may lead to misinterpretation of CBC data. Current Interpretive Data was last revised on 2017. Blood 10/22/2024 1:13 PM CDT 10/22/2024 8:09 PM CDT us Zina Lock MD LAB BLOOD ORDERABLES Final Res ult [facility] [address] Department [place] [address] * GTT 50gm 1hr gestational [...] MD LAB BLOOD ORDERABLES Final Res ult [facility] [address] Department [place] [address] * (ABNORMAL) CBC with auto differential (10/22/2024 1:13 PM CDT) WBC 10.02(H) 3.80 - 9.90 K/cumm Hgb 12.0 11.9 - 15.5 g/dL [facility] Hct 37.3 35.6 - 45.5 % [facility] Plt 227 150 - 400 K/cumm [facility] MPV 9.5 9.1 - 12.3 fL [facility] RBC 3.81(L) 3.90 - 5.20 M/cumm [facility] MCV 97.9(H) 81.3 - 96.4 fL [facility] MCH 31.5 27.1 - 33.3 pg [facility] MCHC 32.2(L) 32.3 - 35.7 g/dL [facility] RDW CV 13.9 11.1 - 14.9 % [facility] RDW SD 50.1(H) 35.7 - 48.1 fL [facility] NRBC abs 0.00 0.00 - 0.01 K/cumm [facility] Blood 10/22/2024 1:13 PM CDT 10/22/2024 8:09 PM CDT Zina Lock MD LAB BLOOD ORDERABLES Final Res ult [facility] [address] [place] [address] * RPR Blood (10/22/2024 1:13 PM CDT) Pathologist [facility] RPR Nonreactive Nonreactive Comment:Testing performed by : [facility], [address] [place]., [address] Blood 10/22/2024 1:13 PM CDT 10/23/2024 12:50 AM CDT Zina Lock MD LAB MICROBIOLOGY - GENERAL ORD ERABLES Final Result Performing Organization Address [facility]/ZIP Co de Phone Number [facility] [address] [place] [address] * POCT OB urine short dip (glucose, protein, ketones) (09/24/2024 1:28 PM CDT) Pathologist [facility] Glucose, ur, POC Negative Negative MG/DL Protein, ur, POC Negative Negative Ketones, ur, POC Negative Negative Lot Number [id number] Urine 09/24/2024 1:28 PM CDT Result [facility] Zina Lock MD POINT OF CARE TEST ORDERABLES Final Result * Hepatitis C antibody Blood (06/06/2024 3:49 PM LYE BATH OPERATOR) Pathologist [facility] Hep C Ab Nonreactive Nonreactive Comment: Interpretive [...] revised on 2019. Blood 06/06/2024 3:49 PM LYE BATH OPERATOR 06/06/2024 7:01 PM LYE BATH OPERATOR us Zina Lock MD LAB MICROBIOLOGY - GENERAL ORD ERABLES Final Result [facility] [address] Department [place] [address] * High Risk HPV DNA Detection with Genotyping (Molecular component) (09/13/2023 11:37 AM LYE BATH OPERATOR) HPV HR 16 Not Detected Not Detected [facility] HPV HR 18 Not Detected Not Detected [facility] HPV HR Non 16/18 Not Detected Not Detected [facility] Comment: Interpretive Data Nucleic acid amplification [...] this test have been verified by the [facility]. Correlate with separately reported cytology results, as applicable. Interpretive data last revised 23 Endocervical 09/13/2023 11:3 7 AM LYE BATH OPERATOR 09/13/2023 9:26 PM LYE BATH OPERATOR Narrative [facility] - 09/16/2023 8:38 PM LYE BATH OPERATOR Clinical history and diagnosis->well woman exam Testing type->Screening Last menstrual period (date if known)->08/16/2023 us Sapna Forbes NP LAB BODY FLUIDS AND STOOLS ORDERABLES Final Result Performing Organization Address [facility]/ZIP Co de Phone Number [facility] [address] Department [place] [address] from Last 3 Months or Most Recently Relevant to Health Maintenance [place] Care Teams Buildings And Grounds Coordinator Relationship Specialty Start Date End Date Maggy Wright NP [address] [facility] [address] [place] [address] PCP - General Internal Medicine 12/08/23
--- NOTE | 2024-12-22 14:12 | ED_ITS ---
HPI - General Adult General Chief complaint: Unspecified Stated complaint: took trazadone while 8 mos Time Seen by Provider: 12/22/24 13:16 History of Present Illness HPI narrative: 34-year-old female with approximately 37 weeks follows up with [facility] presents emergency department after suspecting that she took 1 of her trazodone was. Patient had been on 100 mg of trazodone at home but had stopped these prior to . Patient states that she had at 1 point combined all of her pills and then tried to separate the began and suspects that she may have taken a trazodone today because she is feeling the effects of the trazodone rather than the Lexapro she intended to take. Patient did call poison Control and because patient states that she felt like her blood pressure was low she was referred to the emergency department for further evaluation. Upon arrival emergency department patient is normotensive denies any lightheaded dizziness denies any chest pain or shortness of breath denies any abdominal pain. Patient states she is feeling active movement. Patient did have heart tones that were within normal limits. Patient was offered further workup and nondistressed monitoring and patient declined. Related Data Home Medications ?Medication ?Instructions ?Recorded ?Confirmed ?Last Taken ?Type calcium 600 mg (as 1 tablet PO DAILY 05/21/19 02/28/21 Unknown History carbonate)-vitamin D3 10 mcg (400 unit) tablet (Calcium with Vitamin D) cyanocobalamin (vitamin B-12) 1,000 mcg PO DAILY 05/21/19 02/28/21 Unknown History 1,000 mcg tablet (Vitamin B-12) acetaminophen 500 mg capsule 1,000 mg PO TID PRN Pain 06/26/19 02/28/21 Unknown History escitalopram oxalate 5 mg tablet 5 mg PO DAILY 02/28/21 02/28/21 Unknown History trazodone 50 mg tablet 50 mg PO DAILY 02/28/21 02/28/21 Unknown History venlafaxine 150 mg 150 mg PO DAILY 02/28/21 02/28/21 Unknown History capsule,extended release 24 hr Allergies Allergy/AdvReac Type Severity Reaction Status Date / Time Sulfa (Sulfonamide Allergy Intermediate Hives / Verified 12/22/24 13:26 Antibiotics) Red Face Penicillins Allergy Unknown rash Verified 12/22/24 13:26 Review of Systems Review of Systems: All systems reviewed & are unremarkable except as noted in HPI and below PMFSH Past Medical History Medical History (Updated 12/22/24 @ 14:16 by Ayaz Lacy MD) Insomnia Anemia Anxiety and depression Surgical History Surgical History (Updated 02/28/21 @ 17:19 by Jammie Orellana NP) No history of previous surgery Family History Family History Father Family history of elevated blood lipids Mother Family history of malignant neoplasm of breast in first degree relative Other Depression Social History Social History (Updated 02/28/21 @ 17:19 by Jammie Orellana NP) Smoking end date: 07/18/09 Alcohol intake: current Alcohol use details: social Substance use type: does not use Living arrangements: with family Gender identity (if verbalized by the patient): Female Exam Narrative: APPEARANCE: Well appearing, no pain, no distress, well-nourished. HEAD: normocephalic, atraumatic. EYES: PERRLA/EOMI, conjunctivae clear. NOSE: Normal no drainage EARS:TMS clear with good light reflex. THROAT: Pharynx clear, no exudate. NECK: Supple. No adenopathy, no masses. RESPIRATORY: Airway patent, respirations nonlabored. Clear to auscultation bilaterally, no rales, rhonchi, wheezing. CARDIOVASCULAR: Regular rate and rhythm without murmurs rubs or gallops. ABDOMINAL: Gravid abdomen nontender MUSCULOSKELETAL: Moves all extremities. Strength/ROM intact, No edema, No calf tenderness. NEURO: Alert. Cranial nerves II through XII intact. Good gait. Good coordination SKIN: Warm, dry. Normal Color Course Vital Signs Vital signs: Vital Signs Pulse Rate 111 H 12/22/24 13:23 Respiratory Rate 12/22/24 13:23 Blood Pressure 138/86 12/22/24 13:23 Pulse Oximetry 98 12/22/24 13:23 Pulse Rate 107 H 12/22/24 14:20 Respiratory Rate 12/22/24 14:20 Blood Pressure 113/79 12/22/24 14:20 Pulse Oximetry 98 12/22/24 14:20 Medical Decision Making MDM Narrative Medical decision making narrative: Patient's bedside a heart tone were within normal limits. Patient is asymptomatic denies any complaints at this time. Patient declined any additional workup. Patient was able to ambulate in the emergency department and was also asymptomatic with normal blood pressures. Patient strongly prefers to be discharged home is declining any additional workup at this time. Vital Signs Vital Signs: Vital Signs Pulse Rate 111 H 12/22/24 13:23 Respiratory Rate 13 12/22/24 13:23 Blood Pressure 138/86 12/22/24 13:23 Pulse Oximetry 98 12/22/24 13:23 Pulse Rate 107 H 12/22/24 14:20 Respiratory Rate 13 12/22/24 14:20 Blood Pressure 113/79 12/22/24 14:20 Pulse Oximetry 98 12/22/24 14:20 Discharge Plan Discharge Clinical Impression: Adverse effect of trazodone Patient Disposition: Home Condition: Stable Instructions: Antibiotic Form Additional Instructions: Have close follow-up with your primary care physician and with OB Gyne. Patient Language: Portuguese Prescriptions: No Action trazodone 50 mg tablet 50 mg PO DAILY venlafaxine 150 mg capsule,extended release 24hr 150 mg PO DAILY escitalopram oxalate 5 mg tablet 5 mg PO DAILY prednisone 20 mg tablet 20 mg PO BID Qty: 10 0RF Rx Instructions: Take as prescribed all doses with food cyanocobalamin (vitamin B-12) [Vitamin B-12] 1,000 mcg Tablet 1,000 mcg PO DAILY calcium carbonate-vitamin D3 [Calcium with Vitamin D] 600 mg(1,500mg) -400 unit Tablet 1 tablet PO DAILY acetaminophen 500 mg capsule 1,000 mg PO TID PRN (Reason: Pain) clonazepam [Klonopin] 0.5 mg tablet 0.5 mg PO BID Qty: 60 5RF Follow-up/Referrals: PHYSICIAN NOT ON STAFF,NONSTAFF [Primary Care Provider] -
[2024-12-22 14:20] VITALS: BP 113/79; PULSE 107; RESP 13; O2SAT 98
== END 2024-12-22 14:23 | disposition home or self-care (01) ==
PROVIDERS: Emergency Provider Emergency Medicine
DX: O9A.213 Injury, poisoning and certain other consequences of external causes complicating pregnancy, third trimester (principal); T43.211A Poisoning by selective serotonin and norepinephrine reuptake inhibitors, accidental (unintentional), initial encounter; O99.343 Other mental disorders complicating pregnancy, third trimester; F41.9 Anxiety disorder, unspecified; F32.A Depression, unspecified; Z79.899 Other long term (current) drug therapy; Z3A.37 37 weeks gestation of pregnancy
CPT/HCPCS: 99283